=== PATIENT | male | born 1965 | race Caucasian/White ===

== ENCOUNTER 2018-02-22 10:37 | Emergency (ER) | payer MEDICAID, OTHER ==
[~2018-02-22] VITALS: Ht 172.7 cm; Wt 66.0 kg
[2018-02-22] MEDS ORDERED: SODIUM CHLORIDE 0.9% 1,000 ML IV ONE (10:59)
[2018-02-22] MEDS ORDERED: SODIUM CHLORIDE FLUSH 10ML SYR IVF ONE (11:00)
[2018-02-22] MEDS ORDERED: SODIUM CHLORIDE 0.9% 1,000ML IVBOLUS ONE (11:00)
[2018-02-22 11:34] LABS: INTERNATIONAL NORMALIZED RATIO 1.11 (0.93-1.1); PROTHROMBIN TIME 11.4 Seconds (9.6-11.5)
[2018-02-22 11:37] LABS: ALANINE AMINOTRANSFERASE 69 U/L (12-78); ALBUMIN 3.6 g/dL (3.4-5.0); ANION GAP 7 mmol/L (5-15); CALCIUM 8.5 mg/dL (8.5-10.1); CHLORIDE 101 mmol/L (98-107); CREATININE 1.24 mg/dL (0.7-1.3)
[2018-02-22 11:42] LABS: ALKALINE PHOSPHATASE 130 U/L (45-117); BILIRUBIN,TOTAL 2.5 mg/dL (0.2-1.0); TOTAL PROTEIN 7.2 g/dL (6.4-8.2); TROPONIN I 0.031 ng/mL (0.000-0.045)
[2018-02-22 11:57] LABS: MEAN CORPUSCULAR HEMOGLOBIN 35.1 pg (27.5-34.5); MEAN CORPUSCULAR HGB CONC 34.2 g/dL (33.2-36.2); MEAN CORPUSCULAR VOLUME 102.6 fL (81-97); MEAN PLATELET VOLUME 9.4 fL (7.4-10.4); PLATELET COUNT 67 x10^3/uL (130-400); RED BLOOD COUNT 4.24 x10^6/uL (4.38-5.82)
[2018-02-22 12:26] LABS: BASOPHILS # (AUTO) 0.01 x10^3/uL (0-0.1); BASOPHILS % (AUTO) 0 % (0-1); EOSINOPHILS # (AUTO) 0.03 x10^3/uL (0-0.4); EOSINOPHILS % (AUTO) 1 % (1-7); LYMPHOCYTES # (AUTO) 0.32 x10^3/uL (1-3.4); LYMPHOCYTES % (AUTO) 6 % (22-44); MD SCAN; MONOCYTES # (AUTO) 0.34 x10^3/uL (0.2-0.8); MONOCYTES % (AUTO) 7 % (2-9); NEUTROPHILS # (AUTO) 4.33 x10^3/uL (1.8-6.8); NEUTROPHILS % (AUTO) 86 % (42-75)
[2018-02-22 13:07] VITALS: BP 151/102
== END 2018-02-22 13:09 | disposition home or self-care (01) ==
LOC: ED 13:03
DX: R55 Syncope and collapse (principal); F10.10 Alcohol abuse, uncomplicated; F19.14 Other psychoactive substance abuse with psychoactive substance-induced mood disorder; R74.8 Abnormal levels of other serum enzymes
CPT/HCPCS: 36415; 71045; 80053; 83690; 83735; 84484; 85025; 85610; 85730; 93005; 96360; 99285; J7030

== ENCOUNTER 2018-05-09 05:13 | Emergency (ER) | payer OTHER ==
[~2018-05-09] VITALS: Ht 175.3 cm; Wt 67.7 kg
[2018-05-09] MEDS ORDERED: IBUPROFEN 200 MG TABLET PO ONE (06:00)
[2018-05-09] MEDS ORDERED: IBUPROFEN 200 MG TABLET ONE (06:01)
[2018-05-09] MEDS ORDERED: LIDOCAINE-MPF 2%, 2ML ONE (06:43)
[2018-05-09 06:58] VITALS: BP 169/105
== END 2018-05-09 08:10 | disposition home or self-care (01) ==
LOC: ED 08:05
DX: S63.125A Dislocation of interphalangeal joint of left thumb, initial encounter (principal); Z87.891 Personal history of nicotine dependence; X58.XXXA Exposure to other specified factors, initial encounter; Y93.89 Activity, other specified; Y99.8 Other external cause status; Y92.89 Other specified places as the place of occurrence of the external cause
CPT/HCPCS: 26770

== ENCOUNTER 2018-07-13 07:13 | Emergency (ER) | payer OTHER ==
[~2018-07-13] VITALS: Ht 175.3 cm; Wt 75.0 kg
[2018-07-13] MEDS ORDERED: DIPH,PERTUSS(ACELL),TET VAC/PF 0.5 ML IM-VACC ONE ×2 (07:30→08:39)
[2018-07-13 10:05] VITALS: BP 149/103
== END 2018-07-13 10:22 | disposition home or self-care (01) ==
LOC: ED 10:16
DX: S00.03XA Contusion of scalp, initial encounter (principal); S00.31XA Abrasion of nose, initial encounter; G31.2 Degeneration of nervous system due to alcohol; W01.0XXA Fall on same level from slipping, tripping and stumbling without subsequent striking against object, initial encounter; Y93.89 Activity, other specified; Y92.89 Other specified places as the place of occurrence of the external cause; Y99.8 Other external cause status
CPT/HCPCS: 70450; 72125; 90471; 90715; 99284

== ENCOUNTER 2018-07-13 17:47 | Emergency (ER) | payer OTHER ==
[~2018-07-13] VITALS: Ht 177.8 cm; Wt 75.0 kg
[2018-07-13 19:03] VITALS: BP 156/84
== END 2018-07-13 19:54 | disposition home or self-care (01) ==
LOC: ED 19:48
DX: S00.03XA Contusion of scalp, initial encounter (principal); F17.200 Nicotine dependence, unspecified, uncomplicated; W01.0XXA Fall on same level from slipping, tripping and stumbling without subsequent striking against object, initial encounter; Y93.89 Activity, other specified; Y92.89 Other specified places as the place of occurrence of the external cause; Y99.8 Other external cause status
CPT/HCPCS: 70450; 72125; 99284

== ENCOUNTER 2018-07-14 10:11 | Emergency (ER) | payer OTHER ==
[~2018-07-14] VITALS: Ht 177.8 cm; Wt 75.0 kg
[2018-07-14 15:39] VITALS: BP 159/92
== END 2018-07-14 15:42 | disposition home or self-care (01) ==
LOC: ED 11:00
DX: S00.531A Contusion of lip, initial encounter (principal); S40.012A Contusion of left shoulder, initial encounter; F10.220 Alcohol dependence with intoxication, uncomplicated; F17.200 Nicotine dependence, unspecified, uncomplicated; W45.8XXA Other foreign body or object entering through skin, initial encounter; Y93.89 Activity, other specified; Y92.219 Unspecified school as the place of occurrence of the external cause; Y99.8 Other external cause status
CPT/HCPCS: 93005; 99283

== ENCOUNTER 2018-10-20 10:46 | Inpatient (IN) | payer OTHER ==
[~2018-10-20] VITALS: Ht 175.3 cm; Wt 69.8 kg
--- NOTE | 2018-10-20 11:22 | NUR ---
C/O PRODUCTIVE COUGH W/ GREEN PHELGM. CONGESTED COUGH NOTED. REPORT SMOKING 1 PACK/DAY. STATES HE WAS PT AT [facility] 2 WKS AGO FOR SOB. STATES HE DOESN'T TAKE MEDS "BECAUSE MY INSURANCE DOESN'T COVER THEM".
[2018-10-20] MEDS ORDERED: SODIUM CHLORIDE FLUSH 10ML SYR IVF ONE (11:30)
[2018-10-20] MEDS ORDERED: ALBUTEROL/IPRATROPIUM 2.5MG/0.5MG, 3 ML NPPB ONE (11:30)
--- NOTE | 2018-10-20 11:37 | NUR ---
O2 SAT: LOW 90'S. OXYGEN APPLIED: 2LNC.
[2018-10-20] MEDS ORDERED: ALBUTEROL/IPRATROPIUM 2.5MG/0.5MG, 3 ML ONE (11:44)
--- NOTE | 2018-10-20 11:50 | NUR ---
RETURNED FROM XR. RESP TECH IN ROOM.
[2018-10-20 11:55] LABS: BASOPHILS # (AUTO) 0.01 x10^3/uL (0-0.1); BASOPHILS % (AUTO) 0 % (0-1); EOSINOPHILS # (AUTO) 0.07 x10^3/uL (0-0.4); EOSINOPHILS % (AUTO) 1 % (1-7); LYMPHOCYTES # (AUTO) 0.79 x10^3/uL (1-3.4); LYMPHOCYTES % (AUTO) 16 % (22-44); MD NO; MEAN CORPUSCULAR HEMOGLOBIN 34.8 pg (27.5-34.5); MEAN CORPUSCULAR HGB CONC 33.8 g/dL (33.2-36.2); MEAN CORPUSCULAR VOLUME 103.2 fL (81-97); MEAN PLATELET VOLUME 8.2 fL (7.4-10.4); MONOCYTES # (AUTO) 0.42 x10^3/uL (0.2-0.8); MONOCYTES % (AUTO) 8 % (2-9); NEUTROPHILS % (AUTO) 75 % (42-75); PLATELET COUNT 124 x10^3/uL (130-400); RED BLOOD COUNT 3.99 x10^6/uL (4.38-5.82); RED CELL DISTRIBUTION WIDTH 15.5 % (9.4-14.8)
[2018-10-20 12:08] LABS: ANION GAP 8 mmol/L (5-15); CALCIUM 8.8 mg/dL (8.5-10.1); CHLORIDE 109 mmol/L (98-107)
[2018-10-20] MEDS ORDERED: CEFTRIAXONE PMX 1GM/50ML 50 ML ONE (12:14)
[2018-10-20 12:29] LABS: BILIRUBIN, DIRECT 0.4 mg/dL (0.1-0.2)
[2018-10-20] MEDS ORDERED: CEFTRIAXONE PMX 1GM/50ML 50 ML IVPB ONE (12:30)
[2018-10-20 12:31] LABS: BILIRUBIN,INDIRECT 0.3 mg/dL (0.0-2.0); BILIRUBIN,TOTAL 0.7 mg/dL (0.2-1.0); TOTAL PROTEIN 6.9 g/dL (6.4-8.2)
[2018-10-20] MEDS ORDERED: AZITHROMYCIN 500 MG in SODIUM CHLORIDE 0.9% 250 ML IVPB ONE (13:00)
[2018-10-20] MEDS ORDERED: ACETAMINOPHEN 325 MG TABLET PO PRN (13:30)
[2018-10-20] MEDS ORDERED: POLYETHYLENE GLYCOL 17 GM PACKET PO PRN (13:30)
[2018-10-20] MEDS ORDERED: DOCUSATE 100 MG CAPSULE PO PRN (13:30)
[2018-10-20] MEDS ORDERED: ONDANSETRON 2MG/ML, 2ML IVPush PRN (13:30)
[2018-10-20] MEDS ORDERED: BISACODYL 10 MG SUPP PR PRN (13:30)
[2018-10-20] MEDS ORDERED: NS + 20MEQ KCL 1,000 ML IV SCH (14:00)
--- NOTE | 2018-10-20 14:08 | NUR ---
O2 SAT 88% ON 2LNC; WILL TITRATE: O2 INCREASED TO 4LNC
[2018-10-20] MEDS: CEFTRIAXONE PMX 1GM/50ML 50 ML IV SCH (14:13)
[2018-10-20] MEDS ORDERED: methylPREDNISolone SOD SUCC 125 MG/2 ML ONE (14:18)
[2018-10-20] MEDS: methylPREDNISolone SOD SUCC 125 MG/2 ML IVPush SCH ×2 (14:28→20:26)
--- NOTE | 2018-10-20 14:53 | NUR ---
PT REPORT TO SERA GALLAGHER FOR ROOM 484-1
[2018-10-20] MEDS ORDERED: ENALAPRILAT 1.25 MG/ML, 2ML ONE (15:03)
[2018-10-20] MEDS ORDERED: ENOXAPARIN 40 MG/0.4 ML ONE (15:03)
[2018-10-20] MEDS: ENALAPRILAT 1.25 MG/ML, 2ML IVPush PRN (15:07)
[2018-10-20] MEDS: ENOXAPARIN 40 MG/0.4 ML SQ SCH (15:09)
--- NOTE | 2018-10-20 15:09 | NUR ---
CONSULTED DR PEDROZA RE: VASOTEC VS LOPRESSOR ORDER. VO VASOTEC 2.5MG. VASOTEC & LOVENOX GIVEN. PT THEN TAKEN TO FLOOR PER ANDRESSA.
[2018-10-20 15:23] VITALS: BP 185/118
[2018-10-20] MEDS: ALBUTEROL/IPRATROPIUM 2.5MG/0.5MG, 3 ML NPPB SCH ×2 (15:40→19:45)
[2018-10-20] MEDS: DOXYCYCLINE 100 MG in DEXTROSE 5% 250 ML IV SCH (15:59)
[2018-10-20] MEDS: BACLOFEN 10 MG TABLET PO SCH ×2 (16:04→22:27)
[2018-10-20] MEDS: LABETALOL 5MG/ML, 20ML IVPush PRN ×2 (17:26→20:27)
[2018-10-20] MEDS: METOPROLOL TARTRATE 25 MG TABLET PO SCH (18:25)
[2018-10-20 19:54] VITALS: BP 172/99
[2018-10-20 20:24] VITALS: BP 171/105
[2018-10-20] MEDS: GUAIFENESIN ER 600 MG TABLET PO SCH (20:27)
[2018-10-20] MEDS: SODIUM CHLORIDE FLUSH 10ML SYR IVF SCH (20:28)
[2018-10-21] VITALS (7 sets, daily range): BP systolic 149–189; BP diastolic 80–123
[2018-10-21] MEDS: methylPREDNISolone SOD SUCC 125 MG/2 ML IVPush SCH ×4 (01:36→21:10)
[2018-10-21] MEDS: ENALAPRILAT 1.25 MG/ML, 2ML IVPush PRN ×3 (01:36→10:13)
[2018-10-21] MEDS: DOXYCYCLINE 100 MG in DEXTROSE 5% 250 ML IV SCH ×2 (03:22→15:41)
[2018-10-21] MEDS: ALBUTEROL/IPRATROPIUM 2.5MG/0.5MG, 3 ML NPPB SCH ×5 (03:57→20:30)
[2018-10-21 05:28] LABS: ANION GAP 10 mmol/L (5-15); CALCIUM 8.4 mg/dL (8.5-10.1); CHLORIDE 103 mmol/L (98-107)
[2018-10-21 05:29] LABS: CREATININE 1.49 mg/dL (0.7-1.3)
[2018-10-21 05:30] LABS: MEAN CORPUSCULAR HGB CONC 33.7 g/dL (33.2-36.2); MEAN CORPUSCULAR VOLUME 103.8 fL (81-97); MEAN PLATELET VOLUME 9.3 fL (7.4-10.4); PLATELET COUNT 107 x10^3/uL (130-400); RED BLOOD COUNT 3.64 x10^6/uL (4.38-5.82); RED CELL DISTRIBUTION WIDTH 15.6 % (9.4-14.8)
[2018-10-21] MEDS: METOPROLOL TARTRATE 25 MG TABLET PO SCH ×2 (05:47→17:28)
[2018-10-21] MEDS: BACLOFEN 10 MG TABLET PO SCH ×3 (05:47→22:37)
[2018-10-21 05:50] LABS: BASOPHILS % (AUTO) 0 % (0-1); EOSINOPHILS % (AUTO) 0 % (1-7); LYMPHOCYTES % (AUTO) 6 % (22-44); MD SCAN; MONOCYTES # (AUTO) 0.05 x10^3/uL (0.2-0.8); MONOCYTES % (AUTO) 2 % (2-9); NEUTROPHILS # (AUTO) 2.85 x10^3/uL (1.8-6.8); NEUTROPHILS % (AUTO) 92 % (42-75)
[2018-10-21] MEDS: LABETALOL 5MG/ML, 20ML IVPush PRN ×2 (05:53→15:41)
[2018-10-21] MEDS: SODIUM CHLORIDE 0.9% 1,000 ML IV SCH (07:00)
[2018-10-21] MEDS: SODIUM CHLORIDE FLUSH 10ML SYR IVF SCH ×2 (09:00→21:10)
[2018-10-21] MEDS: FOLIC ACID 1 MG TABLET PO SCH (09:06)
[2018-10-21] MEDS: GUAIFENESIN ER 600 MG TABLET PO SCH ×2 (09:06→21:10)
[2018-10-21] MEDS: THIAMINE 100MG TABLET PO SCH (09:06)
[2018-10-21] MEDS: MULTIVITAMIN 1 TABLET PO SCH (09:06)
[2018-10-21] MEDS: AMLODIPINE 5 MG TABLET PO SCH ×2 (11:24→21:10)
[2018-10-21] MEDS: LORazepam 2 MG/ML, 1ML IVPush PRN (11:24)
[2018-10-21 11:55] LABS: CLOSTRIDIUM DIFFICILE ANTIGEN NEGATIVE; CLOSTRIDIUM DIFFICILE TOXIN NEGATIVE (Negative)
[2018-10-21] MEDS: CEFTRIAXONE PMX 1GM/50ML 50 ML IV SCH (12:45)
[2018-10-21] MEDS: ENOXAPARIN 40 MG/0.4 ML SQ SCH (12:46)
[2018-10-21] MEDS: INSULIN LISPRO 100 UNITS/ML, PEN SQ-INSULIN SCH (23:36)
[2018-10-22] VITALS (8 sets, daily range): BP systolic 164–186; BP diastolic 93–111
[2018-10-22] MEDS: ALBUTEROL/IPRATROPIUM 2.5MG/0.5MG, 3 ML NPPB SCH ×5 (01:50→20:15)
[2018-10-22] MEDS: ENALAPRILAT 1.25 MG/ML, 2ML IVPush PRN (02:25)
[2018-10-22] MEDS: methylPREDNISolone SOD SUCC 125 MG/2 ML IVPush SCH ×2 (02:26→08:23)
[2018-10-22] MEDS: DOXYCYCLINE 100 MG in DEXTROSE 5% 250 ML IV SCH ×2 (02:55→16:01)
[2018-10-22] MEDS: SODIUM CHLORIDE 0.9% 1,000 ML IV SCH (04:20)
[2018-10-22] MEDS: LORazepam 2 MG/ML, 1ML IVPush PRN (04:28)
[2018-10-22] MEDS: BACLOFEN 10 MG TABLET PO SCH ×3 (05:27→21:21)
[2018-10-22] MEDS: METOPROLOL TARTRATE 25 MG TABLET PO SCH ×2 (05:27→17:20)
[2018-10-22 06:24] LABS: ANION GAP 7 mmol/L (5-15); CHLORIDE 108 mmol/L (98-107); CREATININE 1.29 mg/dL (0.7-1.3)
[2018-10-22 06:25] LABS: MEAN CORPUSCULAR HEMOGLOBIN 35.1 pg (27.5-34.5); MEAN CORPUSCULAR HGB CONC 33.5 g/dL (33.2-36.2); MEAN CORPUSCULAR VOLUME 104.6 fL (81-97); MEAN PLATELET VOLUME 9.5 fL (7.4-10.4); PLATELET COUNT 109 x10^3/uL (130-400); RED BLOOD COUNT 3.54 x10^6/uL (4.38-5.82); RED CELL DISTRIBUTION WIDTH 15.6 % (9.4-14.8)
[2018-10-22 06:44] LABS: BASOPHILS % (AUTO) 0 % (0-1); EOSINOPHILS % (AUTO) 0 % (1-7); LYMPHOCYTES # (AUTO) 0.18 x10^3/uL (1-3.4); LYMPHOCYTES % (AUTO) 3 % (22-44); MD SCAN; MONOCYTES # (AUTO) 0.14 x10^3/uL (0.2-0.8); MONOCYTES % (AUTO) 2 % (2-9); NEUTROPHILS # (AUTO) 5.64 x10^3/uL (1.8-6.8); NEUTROPHILS % (AUTO) 95 % (42-75)
[2018-10-22] MEDS: AMLODIPINE 5 MG TABLET PO SCH ×2 (08:23→21:21)
[2018-10-22] MEDS: FOLIC ACID 1 MG TABLET PO SCH (08:23)
[2018-10-22] MEDS: THIAMINE 100MG TABLET PO SCH (08:23)
[2018-10-22] MEDS: MULTIVITAMIN 1 TABLET PO SCH (08:23)
[2018-10-22] MEDS: GUAIFENESIN ER 600 MG TABLET PO SCH ×2 (08:23→21:21)
[2018-10-22] MEDS: INSULIN LISPRO 100 UNITS/ML, PEN SQ-INSULIN SCH ×4 (08:24→21:22)
[2018-10-22] MEDS: SODIUM CHLORIDE FLUSH 10ML SYR IVF SCH ×2 (08:24→21:22)
[2018-10-22] MEDS: LABETALOL 5MG/ML, 20ML IVPush PRN (08:26)
[2018-10-22] MEDS: LISINOPRIL 10 MG TABLET PO SCH ×2 (12:23→21:21)
[2018-10-22] MEDS: ENOXAPARIN 40 MG/0.4 ML SQ SCH (15:00)
[2018-10-22] MEDS: CEFTRIAXONE PMX 1GM/50ML 50 ML IV SCH (15:00)
[2018-10-22] MEDS ORDERED: INSULIN LISPRO 100 UNITS/ML, PEN SQ-INSULIN ONE (21:00)
[2018-10-22] MEDS ORDERED: CALCIUM CARBONATE 500 MG TAB.CHEW PO PRN (21:00)
[2018-10-23 00:42] VITALS: BP 162/108
[2018-10-23] MEDS: ENALAPRILAT 1.25 MG/ML, 2ML IVPush PRN (00:49)
[2018-10-23] MEDS: DOXYCYCLINE 100 MG in DEXTROSE 5% 250 ML IV SCH ×2 (03:27→16:13)
[2018-10-23 05:30] LABS: BASOPHILS # (AUTO) 0.01 x10^3/uL (0-0.1); BASOPHILS % (AUTO) 0 % (0-1); EOSINOPHILS % (AUTO) 0 % (1-7); LYMPHOCYTES # (AUTO) 0.73 x10^3/uL (1-3.4); LYMPHOCYTES % (AUTO) 9 % (22-44); MD NO; MEAN CORPUSCULAR HGB CONC 33.7 g/dL (33.2-36.2); MEAN CORPUSCULAR VOLUME 103.9 fL (81-97); MEAN PLATELET VOLUME 8.9 fL (7.4-10.4); MONOCYTES # (AUTO) 0.46 x10^3/uL (0.2-0.8); MONOCYTES % (AUTO) 6 % (2-9); NEUTROPHILS # (AUTO) 6.58 x10^3/uL (1.8-6.8); NEUTROPHILS % (AUTO) 85 % (42-75); PLATELET COUNT 116 x10^3/uL (130-400); RED BLOOD COUNT 3.72 x10^6/uL (4.38-5.82); RED CELL DISTRIBUTION WIDTH 15.5 % (9.4-14.8)
[2018-10-23 05:35] VITALS: BP 164/108
[2018-10-23] MEDS: BACLOFEN 10 MG TABLET PO SCH ×3 (05:36→21:49)
[2018-10-23] MEDS: METOPROLOL TARTRATE 25 MG TABLET PO SCH ×2 (05:36→18:03)
[2018-10-23 05:40] LABS: CHLORIDE 108 mmol/L (98-107)
[2018-10-23 05:44] LABS: ANION GAP 5 mmol/L (5-15); CALCIUM 8.5 mg/dL (8.5-10.1); CREATININE 1.12 mg/dL (0.7-1.3)
[2018-10-23] MEDS: INSULIN LISPRO 100 UNITS/ML, PEN SQ-INSULIN SCH ×4 (07:00→21:49)
[2018-10-23] MEDS: ALBUTEROL/IPRATROPIUM 2.5MG/0.5MG, 3 ML NPPB SCH ×4 (07:15→19:14)
[2018-10-23] MEDS: LISINOPRIL 20 MG TABLET PO SCH ×2 (08:00→20:34)
[2018-10-23] MEDS: MULTIVITAMIN 1 TABLET PO SCH (08:00)
[2018-10-23] MEDS: THIAMINE 100MG TABLET PO SCH (08:00)
[2018-10-23] MEDS: FOLIC ACID 1 MG TABLET PO SCH (08:00)
[2018-10-23] MEDS: AMLODIPINE 5 MG TABLET PO SCH ×2 (08:00→20:34)
[2018-10-23] MEDS: GUAIFENESIN ER 600 MG TABLET PO SCH ×2 (08:00→20:34)
[2018-10-23] MEDS: SODIUM CHLORIDE FLUSH 10ML SYR IVF SCH ×2 (08:01→20:35)
[2018-10-23 08:27] VITALS: BP 161/109
[2018-10-23] MEDS: CEFTRIAXONE PMX 1GM/50ML 50 ML IV SCH (13:30)
[2018-10-23] MEDS: ENOXAPARIN 40 MG/0.4 ML SQ SCH (13:30)
[2018-10-23 14:14] VITALS: BP 159/91
[2018-10-23] MEDS ORDERED: DOXY100T PO (14:53)
[2018-10-23] MEDS ORDERED: METO25TA35 PO (14:53)
[2018-10-23] MEDS ORDERED: GUAI600T31 PO (14:53)
[2018-10-23] MEDS ORDERED: CEFD300C37 PO (14:53)
[2018-10-23] MEDS ORDERED: MULT1TAB60 PO (14:53)
[2018-10-23] MEDS ORDERED: LISI-170 PO (14:53)
[2018-10-23] MEDS ORDERED: PRED20TA PO (14:53)
[2018-10-23] MEDS ORDERED: AMLO-150 PO (14:53)
[2018-10-23] MEDS ORDERED: FOLI-17 PO (14:53)
[2018-10-23] MEDS ORDERED: THIA100T67 PO (14:53)
[2018-10-23] MEDS ORDERED: FUROSEMIDE 20 MG/2 ML IV ONE (17:30)
[2018-10-23 19:36] VITALS: BP 154/86
[2018-10-24 01:42] VITALS: BP 132/81
[2018-10-24] MEDS: DOXYCYCLINE 100 MG in DEXTROSE 5% 250 ML IV SCH ×2 (03:48→15:00)
[2018-10-24] MEDS: BACLOFEN 10 MG TABLET PO SCH ×2 (05:57→14:30)
[2018-10-24] MEDS: METOPROLOL TARTRATE 25 MG TABLET PO SCH (05:57)
[2018-10-24] MEDS: ALBUTEROL/IPRATROPIUM 2.5MG/0.5MG, 3 ML NPPB SCH ×3 (06:47→14:01)
[2018-10-24 07:57] VITALS: BP 135/78
[2018-10-24] MEDS: INSULIN LISPRO 100 UNITS/ML, PEN SQ-INSULIN SCH ×2 (08:11→11:31)
[2018-10-24] MEDS: THIAMINE 100MG TABLET PO SCH (08:12)
[2018-10-24] MEDS: MULTIVITAMIN 1 TABLET PO SCH (08:12)
[2018-10-24] MEDS: GUAIFENESIN ER 600 MG TABLET PO SCH (08:12)
[2018-10-24] MEDS: FOLIC ACID 1 MG TABLET PO SCH (08:12)
[2018-10-24] MEDS: SODIUM CHLORIDE FLUSH 10ML SYR IVF SCH (08:12)
[2018-10-24] MEDS: AMLODIPINE 5 MG TABLET PO SCH (08:12)
[2018-10-24] MEDS: LISINOPRIL 20 MG TABLET PO SCH (08:12)
[2018-10-24] MEDS: ENOXAPARIN 40 MG/0.4 ML SQ SCH (13:30)
[2018-10-24] MEDS: CEFTRIAXONE PMX 1GM/50ML 50 ML IV SCH (13:30)
[2018-10-24 13:48] VITALS: BP 130/74
[2018-10-24] MEDS ORDERED: DOXY100T PO (14:17)
[2018-10-24] MEDS ORDERED: METO25TA35 PO (14:17)
[2018-10-24] MEDS ORDERED: GUAI600T31 PO (14:17)
[2018-10-24] MEDS ORDERED: LISI-170 PO (14:17)
[2018-10-24] MEDS ORDERED: THIA100T67 PO (14:17)
[2018-10-24] MEDS ORDERED: FOLI-17 PO (14:17)
[2018-10-24] MEDS ORDERED: MULT1TAB60 PO (14:17)
[2018-10-24] MEDS ORDERED: PRED20TA PO (14:17)
[2018-10-24] MEDS ORDERED: CEFD300C37 PO (14:17)
[2018-10-24] MEDS ORDERED: AMLO-150 PO (14:17)
== END 2018-10-24 15:45 | disposition home or self-care (01) | DRG 193 ==
LOC: ED 11:59 → EDIP 13:22 → 4EST 15:21 → DCLOUNGE 10-24 15:35
PROVIDERS: ADMIT Hospitalist; ATTEND Hospitalist
DX: J15.9 Unspecified bacterial pneumonia (principal); J96.01 Acute respiratory failure with hypoxia; N17.0 Acute kidney failure with tubular necrosis; E44.0 Moderate protein-calorie malnutrition; J44.0 Chronic obstructive pulmonary disease with (acute) lower respiratory infection; J44.1 Chronic obstructive pulmonary disease with (acute) exacerbation; D69.6 Thrombocytopenia, unspecified; E87.6 Hypokalemia; F17.210 Nicotine dependence, cigarettes, uncomplicated; F10.129 Alcohol abuse with intoxication, unspecified; I11.9 Hypertensive heart disease without heart failure; I27.20 Pulmonary hypertension, unspecified; I35.8 Other nonrheumatic aortic valve disorders; Z91.14 Patient's other noncompliance with medication regimen; Z68.22 Body mass index [BMI] 22.0-22.9, adult
CPT/HCPCS: 36415; 84145; 99285; J7620; 71046; 80048; 80076; 82040; 82947; 82962; 83605; 85025; 87040; 87070; 87205; 87324; 93005; 93306; 93975; 94640; 96365; 96367; 96372; G0378; J0456; J0696; J1650; J3480; J7060; J1815; J1940; J2060; J2930; J7030; J7050; J7512

== ENCOUNTER 2018-11-11 13:11 | Inpatient (IN) | payer OTHER ==
[~2018-11-11] VITALS: Ht 175.3 cm; Wt 68.5 kg
[~2018-11-11 13:11] MED LIST: AMLO-150 PO; CEFD300C37 PO; DOXY100T PO; FOLI-17 PO; GUAI600T31 PO; LISI-170 PO; METO25TA35 PO; MULT1TAB60 PO; PRED20TA PO; THIA100T67 PO
--- NOTE | 2018-11-11 13:50 | NUR ---
pt to ed for clavicle pain after mglf and associated palpitations starting 1/2 hour after fall. pt states drank 1/2 pint to 1 pint of vodka this am. connected to all monitors. htn, tachy, all other vss. edmd assessment complete. orders received.
[2018-11-11] MEDS ORDERED: ASPIRIN 81 MG TABLET CHEW ONE (13:53)
[2018-11-11] MEDS ORDERED: METOPROLOL TARTRATE 50 MG TABLET ONE (13:53)
[2018-11-11] MEDS ORDERED: LORazepam 1MG TABLET ONE (13:54)
[2018-11-11] MEDS ORDERED: LORazepam 1MG TABLET PO ONE (14:00)
[2018-11-11] MEDS ORDERED: ASPIRIN 81 MG TABLET CHEW PO ONE (14:00)
[2018-11-11] MEDS ORDERED: METOPROLOL TARTRATE 50 MG TABLET PO ONE (14:00)
[2018-11-11 14:22] LABS: ALBUMIN 3.1 g/dL (3.4-5.0); ANION GAP 6 mmol/L (5-15); CALCIUM 8.2 mg/dL (8.5-10.1); CHLORIDE 109 mmol/L (98-107)
[2018-11-11 14:28] LABS: ALANINE AMINOTRANSFERASE 25 U/L (12-78); ALKALINE PHOSPHATASE 145 U/L (45-117); BILIRUBIN,TOTAL 0.6 mg/dL (0.2-1.0); CREATININE 1.13 mg/dL (0.7-1.3); TOTAL PROTEIN 6.6 g/dL (6.4-8.2); TROPONIN I 0.081 ng/mL (0.000-0.045)
[2018-11-11 14:34] LABS: BASOPHILS # (AUTO) 0.04 x10^3/uL (0-0.1); BASOPHILS % (AUTO) 1 % (0-1); EOSINOPHILS # (AUTO) 0.13 x10^3/uL (0-0.4); EOSINOPHILS % (AUTO) 3 % (1-7); LYMPHOCYTES # (AUTO) 0.99 x10^3/uL (1-3.4); LYMPHOCYTES % (AUTO) 22 % (22-44); MD NO; MEAN CORPUSCULAR HGB CONC 34.1 g/dL (33.2-36.2); MEAN CORPUSCULAR VOLUME 102.9 fL (81-97); MEAN PLATELET VOLUME 8.4 fL (7.4-10.4); MONOCYTES # (AUTO) 0.33 x10^3/uL (0.2-0.8); MONOCYTES % (AUTO) 7 % (2-9); NEUTROPHILS # (AUTO) 2.99 x10^3/uL (1.8-6.8); NEUTROPHILS % (AUTO) 67 % (42-75); PLATELET COUNT 160 x10^3/uL (130-400); RED BLOOD COUNT 3.95 x10^6/uL (4.38-5.82); RED CELL DISTRIBUTION WIDTH 14.7 % (9.4-14.8)
--- NOTE | 2018-11-11 14:59 | NUR ---
HOSPITALIST TO BEDSIDE FOR ASSESSMENT. PT RESTING IN ROOM. VSS. NO NEEDS AT THIS TIME.
[2018-11-11] MEDS ORDERED: SODIUM CHLORIDE FLUSH 10ML SYR IVF ONE (15:00)
[2018-11-11] MEDS ORDERED: CHLORDIAZEPOXIDE 25 MG CAPSULE PO PRN (15:30)
[2018-11-11] MEDS ORDERED: LABETALOL 5MG/ML, 20ML IVPush PRN (15:30)
[2018-11-11] MEDS ORDERED: ONDANSETRON 2MG/ML, 2ML IVPush PRN (15:30)
[2018-11-11] MEDS ORDERED: CYCLOBENZAPRINE 10 MG TABLET PO PRN (15:30)
[2018-11-11] MEDS ORDERED: NITROGLYCERIN 0.4 MG BOTTLE (25 TABS) SL PRN (15:30)
[2018-11-11] MEDS ORDERED: LORazepam 1MG TABLET PO PRN ×3 (15:30)
[2018-11-11] MEDS ORDERED: LORazepam 2 MG/ML, 1ML IV PRN ×4 (15:30)
[2018-11-11] MEDS ORDERED: ACETAMINOPHEN 325 MG TABLET PO PRN (15:30)
[2018-11-11] MEDS ORDERED: LORazepam 0.5MG TABLET PO PRN (15:30)
[2018-11-11] MEDS ORDERED: morphine SULFATE 10 MG/ML, 1ML IVPush PRN (15:30)
[2018-11-11] MEDS ORDERED: hydrALAzine 20 MG/ML, 1ML IVPush PRN (15:30)
--- NOTE | 2018-11-11 15:55 | NUR ---
PT RESTING IN ROOM WITH EYES CLOSED. VSS. NO NEEDS AT THIS TIME.
[2018-11-11 16:01] LABS: HEMOGLOBIN A1C 6.3 % (4.2-6.3)
[2018-11-11] MEDS ORDERED: POTASSIUM CHLORIDE 20 MEQ TAB.ER.PRT PO SCH (17:00)
[2018-11-11 17:57] VITALS: BP 175/105
[2018-11-11] MEDS: HEPARIN 5,000 UNITS/ML, 1ML SQ SCH (18:09)
[2018-11-11] MEDS: METOPROLOL TARTRATE 25 MG TABLET PO SCH (18:09)
[2018-11-11] MEDS: NICOTINE 21 MG/24 HR PATCH.TD24 TD SCH (18:10)
[2018-11-11] MEDS ORDERED: MAGNESIUM SULFATE 4 GM in SODIUM CHLORIDE 0.9% 100 ML IV ONE (20:00)
[2018-11-11] MEDS ORDERED: ALBUTEROL SULFATE 2.5 MG/3 ML ONE (20:27)
[2018-11-11] MEDS ORDERED: hydrALAzine 20 MG/ML, 1ML IV ONE (20:38)
[2018-11-11] MEDS ORDERED: PHARMACY INSTRUCTION MC PRN ×4 (21:00)
[2018-11-11] MEDS ORDERED: THIAMINE 100MG TABLET PO SCH (21:00)
[2018-11-11] MEDS ORDERED: ATORVASTATIN 80 MG TABLET PO SCH (21:00)
[2018-11-11] MEDS: AMLODIPINE 5 MG TABLET PO SCH (21:00)
[2018-11-11] MEDS ORDERED: LISINOPRIL 20 MG TABLET PO SCH (21:00)
[2018-11-11 21:14] LABS: TROPONIN I 0.094 ng/mL (0.000-0.045)
[2018-11-11] MEDS ORDERED: PHENOBARBITAL SODIUM 690 MG in SODIUM CHLORIDE 0.9% 50 ML IVPB ONE (21:30)
[2018-11-11] MEDS ORDERED: DEXMEDETOMIDINE 200 MCG in SODIUM CHLORIDE 0.9% 48 ML IV PRN (21:30)
[2018-11-11] MEDS ORDERED: PHENOBARBITAL ETOH DETOX PER PHARMACY MC PRN (21:30)
[2018-11-12] MEDS: PHENOBARBITAL 20 MG/5 ML ORAL SOL PO SCH ×2 (02:54→15:40)
[2018-11-12] MEDS: HEPARIN 5,000 UNITS/ML, 1ML SQ SCH ×3 (02:54→17:24)
[2018-11-12] MEDS ORDERED: LABETALOL 5 MG/ML SYRINGE IVPush PRN (03:00)
[2018-11-12 03:02] LABS: BASOPHILS # (AUTO) 0.01 x10^3/uL (0-0.1); BASOPHILS % (AUTO) 0 % (0-1); EOSINOPHILS # (AUTO) 0.09 x10^3/uL (0-0.4); EOSINOPHILS % (AUTO) 2 % (1-7); LYMPHOCYTES # (AUTO) 0.48 x10^3/uL (1-3.4); LYMPHOCYTES % (AUTO) 9 % (22-44); MD NO; MEAN CORPUSCULAR HEMOGLOBIN 34.5 pg (27.5-34.5); MEAN CORPUSCULAR HGB CONC 33.6 g/dL (33.2-36.2); MEAN CORPUSCULAR VOLUME 102.9 fL (81-97); MEAN PLATELET VOLUME 8.4 fL (7.4-10.4); MONOCYTES # (AUTO) 0.31 x10^3/uL (0.2-0.8); MONOCYTES % (AUTO) 6 % (2-9); NEUTROPHILS % (AUTO) 84 % (42-75); PLATELET COUNT 142 x10^3/uL (130-400); RED BLOOD COUNT 3.88 x10^6/uL (4.38-5.82)
[2018-11-12 03:17] LABS: TROPONIN I 0.093 ng/mL (0.000-0.045)
[2018-11-12 03:25] LABS: ALANINE AMINOTRANSFERASE 23 U/L (12-78); ANION GAP 6 mmol/L (5-15); CALCIUM 8.5 mg/dL (8.5-10.1); CHLORIDE 114 mmol/L (98-107); CREATININE 1.08 mg/dL (0.7-1.3)
[2018-11-12 03:27] LABS: ALKALINE PHOSPHATASE 127 U/L (45-117); BILIRUBIN,TOTAL 0.6 mg/dL (0.2-1.0); TOTAL PROTEIN 6.2 g/dL (6.4-8.2)
[2018-11-12 04:09] VITALS: BP 146/100
[2018-11-12] MEDS ORDERED: ALBUTEROL/IPRATROPIUM 2.5MG/0.5MG, 3 ML NPPB SCH (06:00)
[2018-11-12] MEDS: METOPROLOL TARTRATE 25 MG TABLET PO SCH ×2 (06:02→17:24)
[2018-11-12] MEDS: LISINOPRIL 20 MG TABLET PO SCH ×2 (08:31→21:24)
[2018-11-12] MEDS: MULTIVITAMIN 1 TABLET PO SCH (08:32)
[2018-11-12] MEDS: AMLODIPINE 5 MG TABLET PO SCH ×2 (08:32→21:24)
[2018-11-12] MEDS: FOLIC ACID 1 MG TABLET PO SCH (08:32)
[2018-11-12] MEDS ORDERED: ASPIRIN 81 MG TABLET CHEW PO SCH (09:00)
[2018-11-12] MEDS: POTASSIUM CHLORIDE 20 MEQ, MAGNESIUM SULFATE 1 GM, MVI ADULT 10 ML, THIAMINE 200 MG, FO... IV SCH (09:13)
[2018-11-12 11:09] VITALS: BP 144/83
[2018-11-12 13:28] VITALS: BP 144/84
[2018-11-12] MEDS: NICOTINE 21 MG/24 HR PATCH.TD24 TD SCH (15:40)
[2018-11-12 18:56] VITALS: BP 144/86
[2018-11-12 21:20] VITALS: BP 152/98
[2018-11-13] MEDS: PHENOBARBITAL 20 MG/5 ML ORAL SOL PO SCH ×2 (02:24→15:48)
[2018-11-13] MEDS: HEPARIN 5,000 UNITS/ML, 1ML SQ SCH ×4 (02:25→20:55)
[2018-11-13 02:32] VITALS: BP 142/91
[2018-11-13 05:38] LABS: BASOPHILS # (AUTO) 0.03 x10^3/uL (0-0.1); BASOPHILS % (AUTO) 1 % (0-1); CHLORIDE 105 mmol/L (98-107); EOSINOPHILS # (AUTO) 0.24 x10^3/uL (0-0.4); EOSINOPHILS % (AUTO) 7 % (1-7); LYMPHOCYTES # (AUTO) 0.52 x10^3/uL (1-3.4); LYMPHOCYTES % (AUTO) 15 % (22-44); MD NO; MEAN CORPUSCULAR HEMOGLOBIN 34.1 pg (27.5-34.5); MEAN CORPUSCULAR HGB CONC 33.4 g/dL (33.2-36.2); MONOCYTES # (AUTO) 0.33 x10^3/uL (0.2-0.8); MONOCYTES % (AUTO) 9 % (2-9); NEUTROPHILS % (AUTO) 68 % (42-75); PLATELET COUNT 113 x10^3/uL (130-400); RED BLOOD COUNT 3.73 x10^6/uL (4.38-5.82)
[2018-11-13 05:46] LABS: ALANINE AMINOTRANSFERASE 22 U/L (12-78); ALBUMIN 2.4 g/dL (3.4-5.0); ALKALINE PHOSPHATASE 118 U/L (45-117); ANION GAP 6 mmol/L (5-15); BILIRUBIN,TOTAL 0.8 mg/dL (0.2-1.0); CALCIUM 7.7 mg/dL (8.5-10.1); CREATININE 1.14 mg/dL (0.7-1.3); TOTAL PROTEIN 5.6 g/dL (6.4-8.2)
[2018-11-13] MEDS: METOPROLOL TARTRATE 25 MG TABLET PO SCH ×2 (06:22→18:55)
[2018-11-13 07:33] VITALS: BP 135/94
[2018-11-13] MEDS: LISINOPRIL 20 MG TABLET PO SCH ×2 (08:30→20:57)
[2018-11-13] MEDS: MULTIVITAMIN 1 TABLET PO SCH (08:30)
[2018-11-13] MEDS: FOLIC ACID 1 MG TABLET PO SCH (08:30)
[2018-11-13] MEDS: AMLODIPINE 5 MG TABLET PO SCH ×2 (08:30→20:57)
[2018-11-13] MEDS ORDERED: ALBUTEROL/IPRATROPIUM 2.5MG/0.5MG, 3 ML NPPB SCH (10:00)
[2018-11-13] MEDS: POTASSIUM CHLORIDE 20 MEQ, MAGNESIUM SULFATE 1 GM, MVI ADULT 10 ML, THIAMINE 200 MG, FO... IV SCH (11:46)
[2018-11-13 12:13] VITALS: BP 141/93
[2018-11-13] MEDS: NICOTINE 21 MG/24 HR PATCH.TD24 TD SCH (15:49)
[2018-11-13] MEDS ORDERED: MAGNESIUM SULFATE PMX 2GM/50ML 50 ML IV ONE (18:30)
[2018-11-13 18:43] VITALS: BP 160/96
[2018-11-13] MEDS: MAGNESIUM OXIDE 400 MG TABLET PO SCH (20:57)
[2018-11-14 00:01] VITALS: BP 148/92
[2018-11-14] MEDS: PHENOBARBITAL 20 MG/5 ML ORAL SOL PO SCH ×2 (02:13→14:10)
[2018-11-14 04:15] VITALS: BP 136/90
[2018-11-14 05:06] LABS: BASOPHILS # (AUTO) 0.04 x10^3/uL (0-0.1); BASOPHILS % (AUTO) 1 % (0-1); EOSINOPHILS # (AUTO) 0.31 x10^3/uL (0-0.4); EOSINOPHILS % (AUTO) 8 % (1-7); LYMPHOCYTES # (AUTO) 0.71 x10^3/uL (1-3.4); LYMPHOCYTES % (AUTO) 19 % (22-44); MD NO; MEAN CORPUSCULAR HEMOGLOBIN 34.7 pg (27.5-34.5); MEAN CORPUSCULAR VOLUME 102.1 fL (81-97); MEAN PLATELET VOLUME 9.1 fL (7.4-10.4); MONOCYTES # (AUTO) 0.37 x10^3/uL (0.2-0.8); MONOCYTES % (AUTO) 10 % (2-9); NEUTROPHILS # (AUTO) 2.36 x10^3/uL (1.8-6.8); NEUTROPHILS % (AUTO) 62 % (42-75); PLATELET COUNT 123 x10^3/uL (130-400); RED BLOOD COUNT 3.81 x10^6/uL (4.38-5.82); RED CELL DISTRIBUTION WIDTH 14.6 % (9.4-14.8)
[2018-11-14 05:13] LABS: ALBUMIN 2.6 g/dL (3.4-5.0); ANION GAP 7 mmol/L (5-15); CALCIUM 8.1 mg/dL (8.5-10.1); CHLORIDE 102 mmol/L (98-107)
[2018-11-14 05:17] LABS: ALANINE AMINOTRANSFERASE 29 U/L (12-78); ALKALINE PHOSPHATASE 120 U/L (45-117); BILIRUBIN,TOTAL 1.3 mg/dL (0.2-1.0); CREATININE 1.02 mg/dL (0.7-1.3); TOTAL PROTEIN 5.7 g/dL (6.4-8.2)
[2018-11-14] MEDS: HEPARIN 5,000 UNITS/ML, 1ML SQ SCH ×2 (06:30→14:11)
[2018-11-14] MEDS: METOPROLOL TARTRATE 25 MG TABLET PO SCH (06:30)
[2018-11-14 08:00] VITALS: BP 131/82
[2018-11-14] MEDS: MULTIVITAMIN 1 TABLET PO SCH (08:36)
[2018-11-14] MEDS: AMLODIPINE 5 MG TABLET PO SCH (08:36)
[2018-11-14] MEDS: LISINOPRIL 20 MG TABLET PO SCH (08:37)
[2018-11-14] MEDS: MAGNESIUM OXIDE 400 MG TABLET PO SCH (08:37)
[2018-11-14] MEDS: FOLIC ACID 1 MG TABLET PO SCH (08:37)
[2018-11-14] MEDS: POTASSIUM CHLORIDE 20 MEQ, MAGNESIUM SULFATE 1 GM, MVI ADULT 10 ML, THIAMINE 200 MG, FO... IV SCH (10:18)
[2018-11-14 14:00] VITALS: BP 138/93
[2018-11-14] MEDS: NICOTINE 21 MG/24 HR PATCH.TD24 TD SCH (14:11)
[2018-11-14] MEDS ORDERED: MAGN400T50 PO (17:44)
[2018-11-16] MEDS ORDERED: PHENOBARBITAL 20 MG/5 ML ORAL SOL PO SCH (02:30)
[2018-11-17] MEDS ORDERED: PHENOBARBITAL 20 MG/5 ML ORAL SOL PO SCH (02:30)
== END 2018-11-14 17:58 | disposition home or self-care (01) | DRG 304 ==
LOC: ED 14:07 → EDIP 14:43 → 5SO 16:58 → CCU 21:02 → 3NW 11-12 11:08
PROVIDERS: ADMIT Hospitalist; ATTEND Hospitalist
DX: I16.0 Hypertensive urgency (principal); J96.01 Acute respiratory failure with hypoxia; E44.0 Moderate protein-calorie malnutrition; F10.231 Alcohol dependence with withdrawal delirium; I50.42 Chronic combined systolic (congestive) and diastolic (congestive) heart failure; D53.9 Nutritional anemia, unspecified; D75.89 Other specified diseases of blood and blood-forming organs; Z68.22 Body mass index [BMI] 22.0-22.9, adult; E87.6 Hypokalemia; F17.210 Nicotine dependence, cigarettes, uncomplicated; I11.0 Hypertensive heart disease with heart failure; I27.20 Pulmonary hypertension, unspecified; J44.9 Chronic obstructive pulmonary disease, unspecified; K70.9 Alcoholic liver disease, unspecified; Z91.14 Patient's other noncompliance with medication regimen; W18.39XA Other fall on same level, initial encounter; Y93.89 Activity, other specified; Y92.89 Other specified places as the place of occurrence of the external cause; Y99.8 Other external cause status; R73.9 Hyperglycemia, unspecified; Z79.899 Other long term (current) drug therapy; Y90.9 Presence of alcohol in blood, level not specified
CPT/HCPCS: 36415; 36600; 71045; 80053; 82803; 82962; 83036; 83735; 84100; 84439; 84443; 84484; 85025; 87081; 93005; 93321; 93325; 94640; 99285; G0378; J1644; J2405; J2560; J3411; J3475; J3480; Q9957; C8924; J0360; J2060

== ENCOUNTER 2018-12-20 06:25 | Emergency (ER) | payer OTHER ==
[~2018-12-20] VITALS: Ht 175.3 cm; Wt 67.3 kg
[~2018-12-20 06:25] MED LIST changes: +MAGN400T50 PO
[2018-12-20 07:10] LABS: ALBUMIN 3.6 g/dL (3.4-5.0); ANION GAP 8 mmol/L (5-15); CALCIUM 8.8 mg/dL (8.5-10.1); CHLORIDE 106 mmol/L (98-107); CREATININE 1.28 mg/dL (0.7-1.3)
[2018-12-20 07:12] LABS: BASOPHILS # (AUTO) 0.01 x10^3/uL (0-0.1); BASOPHILS % (AUTO) 0 % (0-1); EOSINOPHILS # (AUTO) 0.07 x10^3/uL (0-0.4); EOSINOPHILS % (AUTO) 2 % (1-7); LYMPHOCYTES # (AUTO) 0.73 x10^3/uL (1-3.4); LYMPHOCYTES % (AUTO) 15 % (22-44); MD NO; MEAN CORPUSCULAR HGB CONC 33.5 g/dL (33.2-36.2); MEAN CORPUSCULAR VOLUME 101.5 fL (81-97); MEAN PLATELET VOLUME 8.9 fL (7.4-10.4); MONOCYTES # (AUTO) 0.52 x10^3/uL (0.2-0.8); MONOCYTES % (AUTO) 11 % (2-9); NEUTROPHILS # (AUTO) 3.57 x10^3/uL (1.8-6.8); NEUTROPHILS % (AUTO) 73 % (42-75); PLATELET COUNT 102 x10^3/uL (130-400); RED BLOOD COUNT 3.97 x10^6/uL (4.38-5.82); RED CELL DISTRIBUTION WIDTH 15.8 % (9.4-14.8)
[2018-12-20] MEDS ORDERED: KETOROLAC 30 MG/1 ML IM ONE (08:00)
[2018-12-20] MEDS ORDERED: KETOROLAC 30 MG/1 ML ONE (08:09)
--- NOTE | 2018-12-20 08:26 | NUR ---
PT BACK FROM XRAY AND MEDICATED WITH TORADOL. PT RESTING WITH NO COMPLAINTS.
--- NOTE | 2018-12-20 08:40 | NUR ---
DR. PEDROZA NOTIFIED ABOUT BLOOD PRESSURE OF 196/120. IV TO BE ORDERED AND LABETALOL TO BE ORDERED.
--- NOTE | 2018-12-20 08:59 | NUR ---
LABETALOL REQUEST SLIP SENT TO PHARMACY.
[2018-12-20] MEDS ORDERED: LABETALOL 5MG/ML, 20ML IVPush ONE (09:00)
[2018-12-20] MEDS ORDERED: SODIUM CHLORIDE FLUSH 10ML SYR IVF ONE (09:00)
--- NOTE | 2018-12-20 09:27 | NUR ---
LABETALOL IVP GIVEN. WILL CONTINUE TO MONITOR. PATIENT HAS NO COMPLAINTS AT THIS TIME. CALL BUTTON ON BEDSIDE TABLE.
[2018-12-20 09:56] VITALS: BP 149/91
--- NOTE | 2018-12-20 10:30 | NUR ---
Patient/Caregiver given discharge instructions and they have confirmed that they understand the instructions. Patient ambulatory with steady gait.
== END 2018-12-20 10:31 | disposition home or self-care (01) ==
LOC: ED 10:14
DX: G89.29 Other chronic pain (principal); M79.671 Pain in right foot; M79.672 Pain in left foot
CPT/HCPCS: 36415; 73630; 80048; 82040; 84550; 85025; 93005; 96372; 96374; 99284; J1885

== ENCOUNTER 2020-07-09 14:07 | Inpatient (IN) | payer MEDICAID ==
[~2020-07-09] VITALS: Ht 175.3 cm; Wt 62.8 kg
[~2020-07-09 14:07] MED LIST changes: +BISO5TAB8 PO; +FURO20TA3 PO; +GLIP5TAB3 PO; +IPRA4AER INH; +MULT-449 PO; -MULT1TAB60 PO; +SPIR25TA5 PO; +TIOT18CA INH; +TRAM50TA2 PO; +UMEC62.5 INH
--- NOTE | 2020-07-09 14:18 | NUR ---
BIB BY [facility] FOR "I THINK MY COPD/FLUID BUILD UP IS WORSE AGAIN. I HAVN'T BEEN BREATHING WELL FOR TWO DAYS.I ALSO HAVE A RAGING HEADACHE" ROOM AIR SAT OF 93% BUT BREATHING 40/MINUTES ECG OBTAINED RASH NOTED TO UPPER ARMS/TORSO-"YEAH I GOT BED BUGS." WITH FURTHER ASSESSMENT INSECT FOUND-PLACED IN STERILE CONTAINER DROPLET PLUS PRECAUTIONS PLACED
[2020-07-09] MEDS ORDERED: ASPIRIN 81 MG TABLET CHEW PO ONE (14:30)
[2020-07-09] MEDS ORDERED: BUME1TAB21 PO (14:32)
[2020-07-09] MEDS ORDERED: MULT-658 PO (14:32)
[2020-07-09] MEDS ORDERED: CARV6.2512 PO (14:32)
[2020-07-09] MEDS ORDERED: ASPIRIN 81 MG TABLET CHEW ONE (14:45)
--- NOTE | 2020-07-09 15:02 | NUR ---
PT RESTING COMFORTABLY IN BED. APPEARS IN NO ACUTE DISTRESS. VSS. DRINKING JUICE
[2020-07-09 15:16] LABS: BASOPHILS % (AUTO) 1 % (0-1); EOSINOPHILS % (AUTO) 2 % (1-7); LYMPHOCYTES % (AUTO) 13 % (22-44); MEAN CORPUSCULAR HEMOGLOBIN 33.4 pg (27.5-34.5); MEAN CORPUSCULAR HGB CONC 33.6 g/dL (33.2-36.2); MEAN PLATELET VOLUME 10.4 fL (7.4-10.4); MONOCYTES % (AUTO) 8 % (2-9); NEUTROPHILS % (AUTO) 76 % (42-75); PLATELET COUNT 106 x10^3/uL (130-400); RED BLOOD COUNT 4.19 x10^6/uL (4.38-5.82); RED CELL DISTRIBUTION WIDTH 15.4 % (9.4-14.8)
[2020-07-09 15:18] LABS: ALANINE AMINOTRANSFERASE 18 U/L (12-78); ALBUMIN 3.2 g/dL (3.4-5.0); ANION GAP 7 mmol/L (5-15); CALCIUM 9.2 mg/dL (8.5-10.1); CHLORIDE 109 mmol/L (98-107); CREATININE 1.99 mg/dL (0.7-1.3)
[2020-07-09 15:23] LABS: MD NO
[2020-07-09] MEDS ORDERED: FUROSEMIDE 40 MG/4 ML ONE (15:28)
[2020-07-09] MEDS ORDERED: FUROSEMIDE 40 MG/4 ML IV ONE (15:30)
[2020-07-09 15:33] LABS: ALKALINE PHOSPHATASE 115 U/L (45-117); BILIRUBIN,TOTAL 1.3 mg/dL (0.2-1.0); TOTAL PROTEIN 6.9 g/dL (6.4-8.2)
--- NOTE | 2020-07-09 15:36 | NUR ---
RESTING IN BED WATCHING TV. VSS PT IS HYPERTENSIVE AT 153/109
[2020-07-09 15:37] LABS: TROPONIN I 0.127 ng/mL (0.000-0.045)
[2020-07-09] MEDS ORDERED: LORazepam 1MG TABLET ONE (16:22)
[2020-07-09] MEDS ORDERED: LORazepam 1MG TABLET PO ONE (16:30)
--- NOTE | 2020-07-09 16:53 | NUR ---
no bugs have been seen by this nurse.
--- NOTE | 2020-07-09 17:59 | NUR ---
PT SLEEPING IN BED. APPEARS IN NO ACUTE DISTRESS. VSS
[2020-07-09] MEDS ORDERED: ONDANSETRON 2MG/ML, 2ML IVPush PRN (19:00)
[2020-07-09] MEDS ORDERED: ACETAMINOPHEN 325 MG TABLET PO PRN (19:00)
[2020-07-09] MEDS ORDERED: hydrALAzine 20 MG/ML, 1ML IVPush PRN (19:00)
[2020-07-09] MEDS ORDERED: DOCUSATE 100 MG CAPSULE PO PRN (19:00)
[2020-07-09] MEDS ORDERED: HYDROcodone/APAP 5/325 TABLET PO PRN (19:00)
--- NOTE | 2020-07-09 19:18 | NUR ---
BREAK RN: LAB IN ROOM. VS STABLE. SUPERVISOR CLOTH WINDING ON. NSR NOTED. CALL LIGHT IN PLACE. WILL CONTINUE TO MONITOR WHILE PRIMARY RN IS ON BREAK.
[2020-07-09 20:13] LABS: TROPONIN I 0.126 ng/mL (0.000-0.045)
[2020-07-09 20:42] VITALS: BP 141/93
[2020-07-09] MEDS: FAMOTIDINE 20 MG/2 ML IVPush SCH (22:04)
[2020-07-09] MEDS: CARVEDILOL 6.25 MG TABLET PO SCH (22:06)
[2020-07-09 22:14] VITALS: BP 141/93
[2020-07-10 01:01] LABS: TROPONIN I 0.089 ng/mL (0.000-0.045)
[2020-07-10 01:35] VITALS: BP 133/88
[2020-07-10] MEDS ORDERED: ALBUTEROL-IPRATROPIUM MDI INH INH SCH (03:30)
[2020-07-10 06:03] LABS: BASOPHILS % (AUTO) 1 % (0-1); EOSINOPHILS % (AUTO) 5 % (1-7); LYMPHOCYTES % (AUTO) 23 % (22-44); MEAN CORPUSCULAR HEMOGLOBIN 33.1 pg (27.5-34.5); MEAN CORPUSCULAR HGB CONC 32.9 g/dL (33.2-36.2); MEAN PLATELET VOLUME 9.8 fL (7.4-10.4); MONOCYTES % (AUTO) 10 % (2-9); NEUTROPHILS % (AUTO) 61 % (42-75); PLATELET COUNT 98 x10^3/uL (130-400); RED BLOOD COUNT 4.36 x10^6/uL (4.38-5.82); RED CELL DISTRIBUTION WIDTH 15.1 % (9.4-14.8)
[2020-07-10 06:13] LABS: ALANINE AMINOTRANSFERASE 16 U/L (12-78); ALBUMIN 2.8 g/dL (3.4-5.0); ANION GAP 6 mmol/L (5-15); CALCIUM 8.8 mg/dL (8.5-10.1); CHLORIDE 109 mmol/L (98-107); CREATININE 2.07 mg/dL (0.7-1.3)
[2020-07-10 06:15] LABS: ALKALINE PHOSPHATASE 101 U/L (45-117); TOTAL PROTEIN 5.8 g/dL (6.4-8.2)
[2020-07-10 06:16] LABS: MD NO
[2020-07-10 08:49] VITALS: BP 144/96
[2020-07-10] MEDS ORDERED: BUMETANIDE 1 MG TABLET PO SCH (09:00)
[2020-07-10] MEDS: THIAMINE 100MG TABLET PO SCH (09:39)
[2020-07-10] MEDS: SPIRONOLACTONE 25 MG TABLET PO SCH (09:39)
[2020-07-10] MEDS: CARVEDILOL 6.25 MG TABLET PO SCH ×2 (09:40→22:01)
[2020-07-10] MEDS: LISINOPRIL 10 MG TABLET PO SCH (09:40)
[2020-07-10] MEDS: FUROSEMIDE 40 MG/4 ML IV SCH ×2 (09:42→17:53)
[2020-07-10] MEDS: FAMOTIDINE 20 MG/2 ML IVPush SCH (09:42)
[2020-07-10] MEDS: ALBUTEROL-IPRATROPIUM MDI INH INH SCH ×3 (10:15→20:00)
[2020-07-10 12:16] VITALS: BP 118/81
[2020-07-10 20:44] VITALS: BP 138/94
[2020-07-10] MEDS ORDERED: FAMOTIDINE 20 MG TABLET PO SCH (21:00)
[2020-07-10 21:26] LABS: CHLORIDE,URINE RANDOM 75 mmol/L; POTASSIUM,URINE RANDOM 26 mmol/L; SODIUM,URINE RANDOM 66 mmol/L
[2020-07-10 21:27] LABS: MICROSCOPIC AUTO
[2020-07-10] MEDS ORDERED: FAMOTIDINE 40 MG TABLET ONE (21:55)
[2020-07-11 00:14] VITALS: BP 115/69
[2020-07-11] MEDS: ALBUTEROL-IPRATROPIUM MDI INH INH SCH ×3 (08:00→14:56)
[2020-07-11 08:51] VITALS: BP 137/74
[2020-07-11] MEDS: LISINOPRIL 10 MG TABLET PO SCH (10:01)
[2020-07-11] MEDS: THIAMINE 100MG TABLET PO SCH (10:01)
[2020-07-11] MEDS: SPIRONOLACTONE 25 MG TABLET PO SCH (10:01)
[2020-07-11] MEDS: CARVEDILOL 6.25 MG TABLET PO SCH ×2 (10:01→20:13)
[2020-07-11] MEDS: FUROSEMIDE 40 MG/4 ML IV SCH ×2 (10:02→16:58)
[2020-07-11 13:29] VITALS: BP 116/87
[2020-07-11] MEDS ORDERED: FAMOTIDINE 40 MG TABLET ONE (19:58)
[2020-07-11 20:05] LABS: ALANINE AMINOTRANSFERASE 19 U/L (12-78); ALBUMIN 3.1 g/dL (3.4-5.0); ANION GAP 10 mmol/L (5-15); CALCIUM 8.8 mg/dL (8.5-10.1); CHLORIDE 105 mmol/L (98-107)
[2020-07-11 20:08] VITALS: BP 132/87
[2020-07-11 20:10] LABS: ALKALINE PHOSPHATASE 107 U/L (45-117); BILIRUBIN,TOTAL 0.6 mg/dL (0.2-1.0); TOTAL PROTEIN 6.8 g/dL (6.4-8.2)
[2020-07-11] MEDS: FAMOTIDINE 20 MG TABLET PO SCH (20:12)
[2020-07-12] MEDS: ALBUTEROL-IPRATROPIUM MDI INH INH SCH ×5 (00:04→20:15)
[2020-07-12 00:05] VITALS: BP_SYST 110; BP_SYST 132; BP_DIAS 67; BP_DIAS 87
[2020-07-12 07:06] VITALS: BP 126/84
[2020-07-12] MEDS: ISOSORBIDE MONONITRATE ER 30 MG TABLET PO SCH (09:11)
[2020-07-12] MEDS: THIAMINE 100MG TABLET PO SCH (09:11)
[2020-07-12] MEDS: CARVEDILOL 6.25 MG TABLET PO SCH (09:11)
[2020-07-12] MEDS: FUROSEMIDE 40 MG/4 ML IV SCH ×2 (09:12→16:41)
[2020-07-12 12:08] LABS: ALANINE AMINOTRANSFERASE 19 U/L (12-78); ANION GAP 7 mmol/L (5-15); CALCIUM 8.7 mg/dL (8.5-10.1); CHLORIDE 106 mmol/L (98-107); CREATININE 2.63 mg/dL (0.7-1.3)
[2020-07-12 12:10] LABS: ALKALINE PHOSPHATASE 91 U/L (45-117); BILIRUBIN,TOTAL 0.5 mg/dL (0.2-1.0); TOTAL PROTEIN 6.3 g/dL (6.4-8.2)
[2020-07-12 13:30] VITALS: BP 121/65
[2020-07-12] MEDS ORDERED: FAMOTIDINE 40 MG TABLET ONE (20:02)
[2020-07-12 20:09] VITALS: BP 109/74
[2020-07-12] MEDS: FAMOTIDINE 20 MG TABLET PO SCH (20:15)
[2020-07-12] MEDS: CARVEDILOL 12.5 MG TABLET PO SCH (20:16)
[2020-07-13 00:18] VITALS: BP 100/63
[2020-07-13 07:54] VITALS: BP 123/80
[2020-07-13] MEDS: ISOSORBIDE MONONITRATE ER 30 MG TABLET PO SCH (07:55)
[2020-07-13] MEDS: FUROSEMIDE 40 MG/4 ML IV SCH (07:55)
[2020-07-13] MEDS: THIAMINE 100MG TABLET PO SCH (07:56)
[2020-07-13] MEDS: CARVEDILOL 12.5 MG TABLET PO SCH (07:56)
[2020-07-13] MEDS: ALBUTEROL-IPRATROPIUM MDI INH INH SCH ×4 (07:56→20:56)
[2020-07-13] MEDS ORDERED: REGADENOSON 0.4 MG/5 ML SYRINGE ONE (09:07)
[2020-07-13] MEDS ORDERED: SODIUM CHLORIDE 0.9%, 500ML IVBOLUS ONE (10:30)
[2020-07-13] MEDS: FUROSEMIDE 20 MG/2 ML IV SCH (11:11)
[2020-07-13 14:04] VITALS: BP 102/68
[2020-07-13 15:52] VITALS: BP 121/80
[2020-07-13] MEDS ORDERED: FAMOTIDINE 40 MG TABLET ONE (20:15)
[2020-07-13] MEDS: CARVEDILOL 3.125 MG TABLET PO SCH (20:46)
[2020-07-13 20:52] VITALS: BP 129/86
[2020-07-13] MEDS ORDERED: FAMOTIDINE 20 MG/2 ML IV SCH (21:00)
[2020-07-14 02:02] VITALS: BP 106/53
[2020-07-14] MEDS: FUROSEMIDE 20 MG/2 ML IV SCH (07:58)
[2020-07-14 07:59] VITALS: BP 163/80
[2020-07-14] MEDS: CARVEDILOL 3.125 MG TABLET PO SCH (07:59)
[2020-07-14] MEDS: THIAMINE 100MG TABLET PO SCH (07:59)
[2020-07-14] MEDS ORDERED: ISOSORBIDE MONONITRATE ER 30 MG TABLET PO SCH (09:00)
[2020-07-14] MEDS ORDERED: LISINOPRIL 5 MG TABLET PO SCH (10:00)
[2020-07-14 10:08] LABS: BASOPHILS % (AUTO) 1 % (0-1); EOSINOPHILS % (AUTO) 5 % (1-7); LYMPHOCYTES % (AUTO) 17 % (22-44); MEAN CORPUSCULAR HEMOGLOBIN 33.3 pg (27.5-34.5); MEAN CORPUSCULAR HGB CONC 33.1 g/dL (33.2-36.2); MEAN PLATELET VOLUME 10.9 fL (7.4-10.4); MONOCYTES % (AUTO) 8 % (2-9); NEUTROPHILS % (AUTO) 70 % (42-75); PLATELET COUNT 122 x10^3/uL (130-400); RED CELL DISTRIBUTION WIDTH 15.6 % (9.4-14.8)
[2020-07-14 10:14] LABS: ANION GAP 6 mmol/L (5-15); CALCIUM 9.2 mg/dL (8.5-10.1); CHLORIDE 106 mmol/L (98-107); CREATININE 2.92 mg/dL (0.7-1.3); MD NO
[2020-07-14] MEDS ORDERED: CARV3.1212 PO (10:33)
[2020-07-14] MEDS ORDERED: LISI5TAB7 PO (10:33)
[2020-07-14] MEDS ORDERED: ISOS30TA8 PO (10:33)
[2020-07-14] MEDS: ALBUTEROL-IPRATROPIUM MDI INH INH SCH ×2 (11:00→12:28)
[2020-07-14 12:52] VITALS: BP 141/90
== END 2020-07-14 15:50 | disposition home or self-care (01) | DRG 194 ==
LOC: ED 16:39 → EDIP 16:47 → 5SO 20:37 → CCU 07-13 10:02 → 5SO 07-13 15:05 → DCLOUNGE 07-14 15:40
PROVIDERS: ADMIT Internal Medicine; ATTEND Hospitalist
PROC: 0T9B70Z Drainage of Bladder with Drainage Device, Via Natural or Artificial Opening (ICD-10-PCS; principal; 2020-07-10)
DX: I50.23 Acute on chronic systolic (congestive) heart failure (principal); E11.9 Type 2 diabetes mellitus without complications; E46 Unspecified protein-calorie malnutrition; Z68.20 Body mass index [BMI] 20.0-20.9, adult; I25.9 Chronic ischemic heart disease, unspecified; F17.200 Nicotine dependence, unspecified, uncomplicated; F10.10 Alcohol abuse, uncomplicated; I35.8 Other nonrheumatic aortic valve disorders; I42.9 Cardiomyopathy, unspecified; I44.7 Left bundle-branch block, unspecified; J44.9 Chronic obstructive pulmonary disease, unspecified; N17.9 Acute kidney failure, unspecified; Z59.0 Homelessness; Z91.14 Patient's other noncompliance with medication regimen; Z95.1 Presence of aortocoronary bypass graft; Z95.5 Presence of coronary angioplasty implant and graft; Z79.84 Long term (current) use of oral hypoglycemic drugs
CPT/HCPCS: 36415; 71045; 76770; 78452; 80048; 80053; 81001; 82436; 83036; 83735; 83880; 84133; 84300; 84443; 84484; 85025; 87081; 93005; 93017; 93306; 94640; 96374; 99285; G0378; J1940; J2785; A9502; J7040

== ENCOUNTER 2020-11-06 21:35 | Emergency (ER) | payer MEDICAID ==
[~2020-11-06] VITALS: Ht 175.3 cm; Wt 71.3 kg
[~2020-11-06 21:35] MED LIST changes: +BUME1TAB21 PO; +CARV3.1212 PO; +CARV6.2512 PO; -FOLI-17 PO; +FOLI1TAB32 PO; +ISOS30TA8 PO; +LISI5TAB7 PO; +MULT-658 PO
[2020-11-06] MEDS ORDERED: ACETAMINOPHEN 500 MG TABLET PO ONE (22:00)
[2020-11-06] MEDS ORDERED: KETOROLAC 30 MG/1 ML IM ONE (22:00)
[2020-11-06] MEDS ORDERED: ACETAMINOPHEN 500 MG TABLET ONE (23:03)
[2020-11-06] MEDS ORDERED: KETOROLAC 30 MG/1 ML ONE (23:03)
--- NOTE | 2020-11-07 00:07 | NUR ---
PT DECONED OF BED BUGS. PT PERFORMED INSENTIVE SPEROMERTER AT 1500
[2020-11-07 00:08] VITALS: BP 145/87
== END 2020-11-07 00:10 | disposition home or self-care (01) ==
LOC: ED 11-07 00:04
DX: S22.42XA Multiple fractures of ribs, left side, initial encounter for closed fracture (principal); I10 Essential (primary) hypertension; J44.9 Chronic obstructive pulmonary disease, unspecified; F17.210 Nicotine dependence, cigarettes, uncomplicated; W06.XXXA Fall from bed, initial encounter; Y93.89 Activity, other specified; Y92.098 Other place in other non-institutional residence as the place of occurrence of the external cause; Y99.8 Other external cause status
CPT/HCPCS: 71101; 96372; 99283; 99406; J1885

== ENCOUNTER 2020-12-12 12:34 | Inpatient (IN) | payer MEDICAID ==
[~2020-12-12] VITALS: Ht 175.3 cm; Wt 75.6 kg
--- NOTE | 2020-12-12 12:50 | NUR ---
BIB EMS FOR C/O R SHOULDER AND NECK PAIN 8/ WHEN PT MOVING 2/10 WHEN PT RESTING STARTED 2 DAYS AGO. DENIES INJURY/TRAUMA. STATES "I THINK I SLEPT ON IT WRONG". PT HAS HX CHRONIC ETOH ABUSE. PT DRANK 1 PINT VODKA FROM LAST NIGHT 2100 TO TODAY AFTERNOON OUTREACH SPECIALIST FOR PAIN VS OUTREACH SPECIALIST BP 203/168, HR 103, 96% RA, BS 174. PT RESTING ON GURNEY. NADN. MONITORS APPLIED. BP REMAINS ELEVATED.
[2020-12-12] MEDS ORDERED: MORPHINE SULFATE 4 MG/ML, 1ML ONE ×2 (13:09→14:39)
[2020-12-12] MEDS ORDERED: LABETALOL 5MG/ML, 20ML ONE (13:09)
[2020-12-12] MEDS: morphine SULFATE 10 MG/ML, 1ML IVPush ONE ×2 (13:28→14:07)
[2020-12-12] MEDS: LABETALOL 5MG/ML, 20ML IVPush ONE ×2 (13:29→14:07)
--- NOTE | 2020-12-12 14:02 | NUR ---
UNABLE TO START PIV FOR SUSTAINABILITY ANALYST X 2. SERA MC AT BEDSIDE ATTEMPTING PIV.
[2020-12-12 14:34] LABS: HCT (SEDRATE) 41.3 % (39.2-51.8)
[2020-12-12 14:36] LABS: MEAN CORPUSCULAR HEMOGLOBIN 32.9 pg (27.5-34.5); MEAN CORPUSCULAR HGB CONC 33.9 g/dL (33.2-36.2); MEAN PLATELET VOLUME 9.4 fL (7.4-10.4); PLATELET COUNT 123 x10^3/uL (130-400); RED BLOOD COUNT 4.15 x10^6/uL (4.38-5.82); RED CELL DISTRIBUTION WIDTH 17.2 % (9.4-14.8)
[2020-12-12 14:41] LABS: ALBUMIN 3.6 g/dL (3.4-5.0); ANION GAP 8 mmol/L (5-15); CALCIUM 8.7 mg/dL (8.5-10.1); CHLORIDE 107 mmol/L (98-107); CREATININE 1.78 mg/dL (0.7-1.3)
[2020-12-12] MEDS ORDERED: MORPHINE SULFATE 4 MG/ML, 1ML IVPush ONE (15:00)
[2020-12-12] MEDS ORDERED: LABETALOL 5MG/ML, 20ML IVPush ONE (15:00)
[2020-12-12 15:02] LABS: MD YES
[2020-12-12 15:04] LABS: ANISOCYTOSIS 1+; BAND#(MANUAL) 0.28 x10^3/uL; BANDS%(MANUAL) 3 % (0-7); LYMPH#(MANUAL) 0.94 x10^3/uL (1-3.4); LYMPHS% (MANUAL) 10 % (22-44); MONOS#(MANUAL) 0.85 x10^3/uL (0.3-2.7); MONOS% (MANUAL) 9 % (2-9); MYELOCYTES# (MANUAL) 0.09 x10^3/uL (0-0); MYELOCYTES% (MANUAL) 1 % (0-0); SEG#(MANUAL) 7.24 x10^3/uL (1.8-6.8); SEGS% (MANUAL) 77 % (42-75)
[2020-12-12 15:05] LABS: POLYCHROMASIA 1+
[2020-12-12 15:06] LABS: <PLATELET ESTIMATE> DECREASED; <PLT MORPHOLOGY> NORMAL PLT MORPH; ECHINOCYTES 1+; OVALOCYTES 1+
--- NOTE | 2020-12-12 15:17 | NUR ---
PT RESTING ON GURNEY. NADN. BP REMAINS ELEVATED. ERP DR. THACKER NOTIFIED.
[2020-12-12] MEDS ORDERED: HYDROmorphone 1 MG/ML, 1ML INJ ONE (15:25)
[2020-12-12] MEDS ORDERED: HYDROmorphone 2 MG/ML, 1ML IVPush PRN (15:30)
[2020-12-12] MEDS ORDERED: LIDOCAINE-MPF 1%, 5ML ONE (15:39)
--- NOTE | 2020-12-12 16:03 | NUR ---
PT AMBULATORY IN ROOM. PT STATES PAIN BUT NOW HAS LIMITED ROM.
--- NOTE | 2020-12-12 16:14 | NUR ---
BREAK RN: PT USED URINAL. PT HELPED BACK INTO BED. VS STABLE. PT INSTRUCTED TO CALL FOR HELP IF HE NEEDS TO GET OUT OF BED. CALL LIGHT IN PLACE. NO ACUTE DISTRESS NOTED. WILL CONTINUE TO MONITOR WHILE PRIMARY RN IS ON BREAK.
--- NOTE | 2020-12-12 16:24 | NUR ---
BREAK RN: DR THACKER HAS UPDATED PATIENT. PATIENT TO GO TO IR
[2020-12-12] MEDS ORDERED: LIDOCAINE 1%, 10ML ONE (16:33)
--- NOTE | 2020-12-12 16:49 | NUR ---
PT TAKEN TO IR IN STABLE CONDITION.
--- NOTE | 2020-12-12 17:22 | NUR ---
PT BACK FROM IR. BP ASSESSED. REMAINS ELEVATED. ERP DR. THACKER NOTIFIED.
--- NOTE | 2020-12-12 17:36 | NUR ---
PT STATES INABILITY TO URINATE. PT REFUSING TO BE STRAIGHT CATH'D. ERP DR. THACKER AWARE.
[2020-12-12] MEDS ORDERED: hydrALAzine 20 MG/ML, 1ML ONE (17:38)
[2020-12-12] MEDS ORDERED: CARV6.252 PO (17:47)
[2020-12-12] MEDS ORDERED: FURO40TA6 PO (17:47)
[2020-12-12] MEDS ORDERED: ASPI-963 PO (17:47)
[2020-12-12] MEDS ORDERED: ATOR-2 PO (17:47)
[2020-12-12] MEDS ORDERED: HYDR-3343 PO (17:47)
[2020-12-12] MEDS ORDERED: LOSA50TA14 PO (17:47)
[2020-12-12] MEDS ORDERED: FOLI1TAB32 PO (17:47)
[2020-12-12] MEDS ORDERED: hydrALAzine 20 MG/ML, 1ML IV ONE (18:00)
--- NOTE | 2020-12-12 18:08 | NUR ---
PT STILL UNABLE TO URINATE. PT AGREEABLE TO STRAIGHT CATH. 300 ML URINE REMOVED FROM BLADDER VIA STRAIGHT CATH. PT RESTING ON GURNEY. REPOSITIONED FOR COMFORT.
[2020-12-12] MEDS ORDERED: ALBUTEROL-IPRATROPIUM MDI INH INH ONE (18:30)
--- NOTE | 2020-12-12 18:41 | NUR ---
PT SCREAMING IN ROOM. STATES HE WANTS WATER. PT EDUCATED ON IMPORTANCE OF REMAINING NPO. PT REMAINS UPSET. SITTER NOW AT BEDSIDE.
--- NOTE | 2020-12-12 18:44 | NUR ---
PT BP REMAINS ELEVATED AFTER BP MEDICATION. ERP DR. THACKER NOTIFIED.
[2020-12-12] MEDS ORDERED: LORazepam 2 MG/ML, 1ML ONE (18:45)
[2020-12-12] MEDS ORDERED: ALBUTEROL HFA 90 MCG/SPRAY INH PRN (19:00)
[2020-12-12] MEDS ORDERED: LORazepam 2 MG/ML, 1ML IVPush ONE (19:00)
[2020-12-12] MEDS ORDERED: METOPROLOL 1 MG/ML, 5ML ONE (19:06)
--- NOTE | 2020-12-12 19:09 | NUR ---
PT HR NOTED TO BE ELEVATED TO 134 AND BP REMAINS ELEVATED. EKG COMPLETED AND SHOWN TO ERP DR. THACKER. PER ERP START IVF AND GIVE METOPROLOL TO SLOW DOWN HR AND REPEAT EKG.
--- NOTE | 2020-12-12 19:12 | NUR ---
PER ERP LAW NO NEED FOR IV ABX AT THIS TIME.
--- NOTE | 2020-12-12 19:25 | NUR ---
PT SLEEPING ON GURNEY. NADN. ROSETER REMAINS AT BEDSIDE.
[2020-12-12 19:28] LABS: INTERNATIONAL NORMALIZED RATIO 1.02 (0.93-1.1); PROTHROMBIN TIME 10.9 Seconds (9.6-11.5)
[2020-12-12 19:30] LABS: ALBUMIN 3.5 g/dL (3.4-5.0); BILIRUBIN, DIRECT 0.6 mg/dL (0.1-0.2)
[2020-12-12] MEDS ORDERED: SODIUM CHLORIDE 0.9% 1,000ML IVBOLUS ONE (19:30)
[2020-12-12] MEDS ORDERED: METOPROLOL 1 MG/ML, 5ML IVPush ONE (19:30)
[2020-12-12 19:32] LABS: BILIRUBIN,INDIRECT 0.6 mg/dL (0.0-2.0); BILIRUBIN,TOTAL 1.2 mg/dL (0.2-1.0); TOTAL PROTEIN 7.8 g/dL (6.4-8.2)
--- NOTE | 2020-12-12 19:55 | NUR ---
REPORT GIVEN TO REBECA DEL REAL RN. ALL QUESTIONS ANSWERED. AWAITING PT TRANSPORT.
[2020-12-12] MEDS ORDERED: BISACODYL 10 MG SUPP PR PRN (20:30)
[2020-12-12] MEDS ORDERED: hydrALAzine 20 MG/ML, 1ML IVPush PRN (20:30)
[2020-12-12] MEDS ORDERED: ACETAMINOPHEN 325 MG TABLET PO PRN (20:30)
[2020-12-12] MEDS ORDERED: NS + 20MEQ KCL 1,000 ML IV SCH (20:30)
[2020-12-12] MEDS ORDERED: ONDANSETRON 2MG/ML, 2ML IVPush PRN (20:30)
[2020-12-12] MEDS ORDERED: CHLORDIAZEPOXIDE 25 MG CAPSULE PO PRN (20:30)
[2020-12-12] MEDS ORDERED: LORazepam 2 MG/ML, 1ML IVPush PRN (20:30)
[2020-12-12] MEDS ORDERED: POLYETHYLENE GLYCOL 17 GM PACKET PO PRN (20:30)
[2020-12-12] MEDS ORDERED: THIAMINE 100MG TABLET PO SCH (21:00)
[2020-12-12 21:02] VITALS: BP 190/98
[2020-12-12] MEDS: CARVEDILOL 6.25 MG TABLET PO SCH (21:44)
[2020-12-12] MEDS: ATORVASTATIN 40 MG TABLET PO SCH (21:44)
[2020-12-12 22:30] VITALS: BP 128/83
[2020-12-13 02:00] VITALS: BP 156/82
[2020-12-13 05:39] LABS: BASOPHILS % (AUTO) 1 % (0-1); EOSINOPHILS % (AUTO) 0 % (1-7); LYMPHOCYTES % (AUTO) 11 % (22-44); MEAN CORPUSCULAR HGB CONC 33.7 g/dL (33.2-36.2); MEAN PLATELET VOLUME 11.3 fL (7.4-10.4); MONOCYTES % (AUTO) 13 % (2-9); NEUTROPHILS % (AUTO) 75 % (42-75); PLATELET COUNT 104 x10^3/uL (130-400); RED BLOOD COUNT 3.62 x10^6/uL (4.38-5.82); RED CELL DISTRIBUTION WIDTH 17.9 % (9.4-14.8)
[2020-12-13 05:50] LABS: ANION GAP 10 mmol/L (5-15); CALCIUM 8.1 mg/dL (8.5-10.1); CHLORIDE 111 mmol/L (98-107); MD NO
[2020-12-13 05:51] LABS: CREATININE 1.84 mg/dL (0.7-1.3)
[2020-12-13] MEDS: ALBUTEROL-IPRATROPIUM MDI INH INH SCH ×4 (06:00→19:15)
[2020-12-13 06:25] VITALS: BP 160/91
[2020-12-13] MEDS ORDERED: LORazepam 1MG TABLET PO PRN ×2 (07:00)
[2020-12-13] MEDS ORDERED: LORazepam 0.5MG TABLET PO PRN (07:00)
[2020-12-13] MEDS ORDERED: VANCOMYCIN 1,700 MG in SODIUM CHLORIDE 0.9% 250 ML IV ONE (07:00)
[2020-12-13] MEDS ORDERED: PHARMACOKINETIC MONITORING MC PRN (07:00)
[2020-12-13] MEDS ORDERED: PHARMACOKINETIC CONSULTATION MC ONE (07:00)
[2020-12-13] MEDS ORDERED: VANCOMYCIN PER PHARMACY MC PRN (07:00)
[2020-12-13] MEDS ORDERED: LORazepam 2 MG/ML, 1ML IV PRN ×3 (07:00)
[2020-12-13] MEDS: CEFTRIAXONE PMX 2GM/50ML 50 ML IVPB SCH (07:11)
[2020-12-13] MEDS: DIAZEPAM 10 MG TABLET PO SCH ×3 (07:11→19:50)
[2020-12-13] MEDS: POTASSIUM CHLORIDE 20 MEQ, MAGNESIUM SULFATE 1 GM, THIAMINE 200 MG, FOLIC ACID 1 MG in ... IV SCH (07:19)
[2020-12-13] MEDS: CARVEDILOL 6.25 MG TABLET PO SCH ×2 (08:41→19:57)
[2020-12-13] MEDS: MULTIVITAMIN 1 TABLET PO SCH (08:41)
[2020-12-13] MEDS: FOLIC ACID 1 MG TABLET PO SCH (08:41)
[2020-12-13] MEDS: LOSARTAN 25MG TABLET PO SCH (08:41)
[2020-12-13] MEDS: ISOSORBIDE MONONITRATE ER 30 MG TABLET PO SCH (08:42)
[2020-12-13] MEDS: SENNA/DOCUSATE TABLET PO SCH (08:43)
[2020-12-13] MEDS ORDERED: FUROSEMIDE 40 MG TABLET PO SCH (09:00)
[2020-12-13 12:10] LABS: MICROSCOPIC INDICATED
[2020-12-13 12:30] VITALS: BP 123/78
[2020-12-13 19:35] VITALS: BP 127/79
[2020-12-13] MEDS: ATORVASTATIN 40 MG TABLET PO SCH (19:58)
[2020-12-14 00:47] VITALS: BP 131/76
[2020-12-14] MEDS: DIAZEPAM 10 MG TABLET PO SCH (00:53)
[2020-12-14] MEDS: ALBUTEROL-IPRATROPIUM MDI INH INH SCH ×5 (03:37→19:30)
[2020-12-14 03:51] LABS: BASOPHILS % (AUTO) 0 % (0-1); EOSINOPHILS % (AUTO) 2 % (1-7); LYMPHOCYTES % (AUTO) 8 % (22-44); MEAN CORPUSCULAR HEMOGLOBIN 32.9 pg (27.5-34.5); MEAN CORPUSCULAR HGB CONC 33.5 g/dL (33.2-36.2); MEAN PLATELET VOLUME 9.5 fL (7.4-10.4); MONOCYTES % (AUTO) 10 % (2-9); NEUTROPHILS % (AUTO) 80 % (42-75); PLATELET COUNT 96 x10^3/uL (130-400); RED BLOOD COUNT 3.35 x10^6/uL (4.38-5.82); RED CELL DISTRIBUTION WIDTH 18.1 % (9.4-14.8)
[2020-12-14 03:56] LABS: MD NO
[2020-12-14 03:59] LABS: ALBUMIN 2.6 g/dL (3.4-5.0); ANION GAP 8 mmol/L (5-15); CALCIUM 8.2 mg/dL (8.5-10.1); CHLORIDE 110 mmol/L (98-107)
[2020-12-14 04:04] LABS: ALANINE AMINOTRANSFERASE 16 U/L (12-78); ALKALINE PHOSPHATASE 96 U/L (45-117); TOTAL PROTEIN 6.1 g/dL (6.4-8.2)
[2020-12-14 06:23] VITALS: BP 133/86
[2020-12-14] MEDS ORDERED: DIAZEPAM 5 MG TABLET PO SCH ×2 (07:00→13:00)
[2020-12-14] MEDS: CEFTRIAXONE PMX 2GM/50ML 50 ML IVPB SCH (07:55)
[2020-12-14] MEDS ORDERED: VANCOMYCIN 1,400 MG in SODIUM CHLORIDE 0.9% 250 ML IV SCH (08:00)
[2020-12-14] MEDS: MULTIVITAMIN 1 TABLET PO SCH ×2 (08:01→09:23)
[2020-12-14] MEDS: CARVEDILOL 6.25 MG TABLET PO SCH ×3 (08:01→21:05)
[2020-12-14] MEDS: LOSARTAN 25MG TABLET PO SCH ×2 (08:02→09:23)
[2020-12-14] MEDS: FUROSEMIDE 40 MG TABLET PO SCH ×2 (08:02→09:23)
[2020-12-14] MEDS: FOLIC ACID 1 MG TABLET PO SCH (08:02)
[2020-12-14] MEDS: ISOSORBIDE MONONITRATE ER 30 MG TABLET PO SCH (09:23)
[2020-12-14] MEDS: SENNA/DOCUSATE TABLET PO SCH (09:23)
[2020-12-14] MEDS: AMPICILLIN/SULBACTAM 1,500 MG in SODIUM CHLORIDE 0.9% 50 ML IV SCH ×3 (09:55→22:17)
[2020-12-14] MEDS: POTASSIUM CHLORIDE 20 MEQ, MAGNESIUM SULFATE 1 GM, THIAMINE 200 MG, FOLIC ACID 1 MG in ... IV SCH (10:44)
[2020-12-14 12:01] VITALS: BP 152/90
[2020-12-14] MEDS ORDERED: morphine SULFATE 10 MG/ML, 1ML IVPush PRN (13:00)
[2020-12-14 13:43] VITALS: BP 155/89
[2020-12-14 18:38] VITALS: BP 149/86
[2020-12-14] MEDS: ATORVASTATIN 40 MG TABLET PO SCH (21:05)
[2020-12-15 02:00] VITALS: BP 137/82
[2020-12-15] MEDS: AMPICILLIN/SULBACTAM 1,500 MG in SODIUM CHLORIDE 0.9% 50 ML IV SCH ×2 (04:09→10:31)
[2020-12-15] MEDS: ALBUTEROL-IPRATROPIUM MDI INH INH SCH ×2 (04:10→11:00)
[2020-12-15 06:24] VITALS: BP 152/92
[2020-12-15] MEDS: SENNA/DOCUSATE TABLET PO SCH (08:10)
[2020-12-15] MEDS: CARVEDILOL 6.25 MG TABLET PO SCH (08:11)
[2020-12-15] MEDS: ISOSORBIDE MONONITRATE ER 30 MG TABLET PO SCH (08:12)
[2020-12-15] MEDS: MULTIVITAMIN 1 TABLET PO SCH (08:12)
[2020-12-15] MEDS: FOLIC ACID 1 MG TABLET PO SCH (08:12)
[2020-12-15] MEDS: FUROSEMIDE 40 MG TABLET PO SCH ×2 (08:13→08:18)
[2020-12-15] MEDS ORDERED: LOSARTAN 50MG TABLET PO SCH (09:00)
[2020-12-15] MEDS ORDERED: ATOR-2 PO (11:06)
[2020-12-15] MEDS ORDERED: LOSA50TA14 PO (11:06)
[2020-12-15] MEDS ORDERED: CARV6.252 PO (11:06)
[2020-12-15] MEDS ORDERED: IPRA4AER INH (11:06)
[2020-12-15] MEDS ORDERED: HYDR-3343 PO (11:06)
[2020-12-15] MEDS ORDERED: FURO40TA6 PO (11:06)
[2020-12-15] MEDS ORDERED: AMOX1TAB61 PO (11:06)
[2020-12-15] MEDS ORDERED: ISOS30TA8 PO (11:06)
== END 2020-12-15 13:03 | disposition home or self-care (01) | DRG 351 ==
LOC: ED 19:01 → 4WST 20:50 → DCLOUNGE 12-15 12:49
PROVIDERS: ADMIT Internal Medicine; ATTEND Hospitalist
PROC: 0R9J3ZZ Drainage of Right Shoulder Joint, Percutaneous Approach (ICD-10-PCS; principal; 2020-12-12)
DX: M25.011 Hemarthrosis, right shoulder (principal); J96.21 Acute and chronic respiratory failure with hypoxia; J18.9 Pneumonia, unspecified organism; I13.0 Hypertensive heart and chronic kidney disease with heart failure and stage 1 through stage 4 chronic kidney disease, or unspecified chronic kidney disease; E11.22 Type 2 diabetes mellitus with diabetic chronic kidney disease; E87.2 Acidosis; I27.20 Pulmonary hypertension, unspecified; I50.42 Chronic combined systolic (congestive) and diastolic (congestive) heart failure; N18.4 Chronic kidney disease, stage 4 (severe); E87.6 Hypokalemia; F10.239 Alcohol dependence with withdrawal, unspecified; F17.210 Nicotine dependence, cigarettes, uncomplicated; I16.0 Hypertensive urgency; I25.5 Ischemic cardiomyopathy; J44.0 Chronic obstructive pulmonary disease with (acute) lower respiratory infection; K74.60 Unspecified cirrhosis of liver
CPT/HCPCS: 20610; 36415; 71045; 76700; 80048; 80053; 80076; 81001; 82040; 82570; 82945; 83036; 83615; 83735; 84156; 84157; 84560; 85025; 85610; 85651; 85810; 86140; 87070; 87205; 89050; 89060; 93005; 94640; 96374; 96375; G0378; J0696; J1170; J3370; J3411; J3475; J3480; J0295; J0360; J2060; J2270; J7030; J7050

== ENCOUNTER 2021-02-02 06:03 | Inpatient (IN) | payer MEDICAID ==
[~2021-02-02] VITALS: Ht 175.3 cm; Wt 70.3 kg
[~2021-02-02 06:03] MED LIST changes: +AMOX1TAB61 PO; +ASPI-963 PO; +ATOR-2 PO; +CARV6.252 PO; +FURO40TA6 PO; +HYDR-3343 PO; +LOSA50TA14 PO
[2021-02-02] MEDS ORDERED: ALBUTEROL/IPRATROPIUM 2.5MG/0.5MG, 3 ML ONE ×2 (06:10→07:30)
[2021-02-02] MEDS ORDERED: ALBUTEROL/IPRATROPIUM 2.5MG/0.5MG, 3 ML NPPB PRN (06:30)
[2021-02-02] MEDS ORDERED: SODIUM CHLORIDE FLUSH 10ML SYR IVF ONE (06:30)
--- NOTE | 2021-02-02 06:30 | NUR ---
Patient BIBA from home c/o SOB which woke him up this am. Patient has a hx of COPD and CHF. Patient states his legs have swollen up the last couple days. Bilat lower extremities +3 pitting edema. Patient tripoding and speaking in 1-2 word sentences; respirations rapid. Pale and diaphoretic.
[2021-02-02] MEDS ORDERED: PLEASE ENTER HEIGHT AND WEIGHT MC SCH (07:00)
[2021-02-02 07:33] LABS: ALBUMIN 3.4 g/dL (3.4-5.0); ANION GAP 10 mmol/L (5-15); CALCIUM 8.6 mg/dL (8.5-10.1); CHLORIDE 107 mmol/L (98-107)
--- NOTE | 2021-02-02 07:35 | NUR ---
RECEIVED REPORT FROM DEANDRA. PT TRIPODING ON EOB WITH SEVERE WOB & NC IN PLACE DURING REPORT. PT MOD ANXIOUS REQUIRING FREQUENT REDIRECTION/REASSURANCE TO KEEP SUPPL O2 IN PLACE (PT KEEPS PULLING IT AWAY FROM FACE), RT PAGED & ADMINISTERED NPPB TX THEN PLACED PT ON BIPAP; UNABLE TO OBTAIN PIV ACCESS DESPITE MULT ATTEMPTS BY SEVERAL STAFF- ERP AWARE & AWAITING PICC PLACEMENT ORDER AT THIS TIME.
[2021-02-02 07:36] LABS: CREATININE 2.11 mg/dL (0.7-1.3)
[2021-02-02 07:37] LABS: ALANINE AMINOTRANSFERASE 27 U/L (12-78); ALKALINE PHOSPHATASE 171 U/L (45-117); BILIRUBIN,TOTAL 1.6 mg/dL (0.2-1.0); TOTAL PROTEIN 7.9 g/dL (6.4-8.2)
[2021-02-02 07:40] LABS: TROPONIN I 0.165 ng/mL (0.000-0.045)
--- NOTE | 2021-02-02 07:41 | NUR ---
Multiple IVs attempted with no success. Spoke with Dr. Reynolds regarding a potential PICC line; she agreed. Awaiting orders. Report given to SERA Bell and Ranulfo RN. Patient care transferred.
[2021-02-02 07:47] LABS: BASOPHILS % (AUTO) 1 % (0-1); EOSINOPHILS % (AUTO) 3 % (1-7); LYMPHOCYTES % (AUTO) 11 % (22-44); MEAN CORPUSCULAR HEMOGLOBIN 32.4 pg (27.5-34.5); MEAN CORPUSCULAR HGB CONC 33.5 g/dL (33.2-36.2); MEAN PLATELET VOLUME 10.3 fL (7.4-10.4); MONOCYTES % (AUTO) 7 % (2-9); NEUTROPHILS % (AUTO) 79 % (42-75); PLATELET COUNT 169 x10^3/uL (130-400); RED BLOOD COUNT 4.19 x10^6/uL (4.38-5.82); RED CELL DISTRIBUTION WIDTH 18.9 % (9.4-14.8)
--- NOTE | 2021-02-02 07:55 | NUR ---
PT CALMER WITH DECREASED WOB WHILE ON BIPAP, RESPONDS APPROP TO STAFF, COMFORT MEASURES PROVIDED, CALL LIGHT WITHIN REACH.
[2021-02-02] MEDS ORDERED: methylPREDNISolone SOD SUCC 125 MG/2 ML IV ONE (08:00)
[2021-02-02] MEDS ORDERED: SODIUM CHLORIDE FLUSH 10ML SYR IVF PRN (08:00)
[2021-02-02] MEDS ORDERED: FUROSEMIDE 40 MG/4 ML IV ONE ×2 (08:00→10:00)
[2021-02-02 08:01] LABS: MD SCAN
--- NOTE | 2021-02-02 08:15 | NUR ---
RT DECREASED BIPAP TO 50%- PT TOLERATING WELL.
--- NOTE | 2021-02-02 08:42 | NUR ---
REPORT GIVEN TO SERA MIMS.
--- NOTE | 2021-02-02 09:07 | NUR ---
IR AT BEDSIDE FOR PICC LINE INSERTION.
[2021-02-02] MEDS ORDERED: ACETAMINOPHEN 325 MG TABLET PO PRN (09:30)
[2021-02-02] MEDS ORDERED: BISACODYL 10 MG SUPP PR PRN (09:30)
[2021-02-02] MEDS ORDERED: LACTULOSE 10 GM/15 ML UDC PO PRN (09:30)
[2021-02-02] MEDS ORDERED: HYDROcodone/APAP 5/325 TABLET PO PRN (09:30)
[2021-02-02] MEDS ORDERED: ENALAPRILAT 1.25 MG/ML, 2ML IVPush PRN (09:30)
[2021-02-02] MEDS ORDERED: ONDANSETRON 2MG/ML, 2ML IVPush PRN (09:30)
[2021-02-02] MEDS ORDERED: hydrALAzine 20 MG/ML, 1ML IVPush PRN (09:30)
--- NOTE | 2021-02-02 09:31 | NUR ---
BIPAP REMOVED BRIEFY TO ALLOW PT TO TAKE A FEW SIPS OF WATER PER PT REQUEST. ONCE PT DONE DRINKING, PT BECAME EXTREMELY ANXIOUS YELLING TO PUT THE MASK BACK ON. PT MAINTAINED SATS >95% THROUGHOUT. BIPAP IN PLACE. NADN. CHRISTIANSON AT BEDSIDE FOR PICC.
--- NOTE | 2021-02-02 09:39 | NUR ---
PT DELAYING IR PROCEDURE, D/T SOB WHEN SITTING UP IN [facility].
--- NOTE | 2021-02-02 09:42 | NUR ---
PER PLAN IS TO INTUBATE PT.
[2021-02-02] MEDS ORDERED: methylPREDNISolone SOD SUCC 125 MG/2 ML ONE (09:53)
[2021-02-02] MEDS ORDERED: hydrALAzine 20 MG/ML, 1ML ONE (09:54)
[2021-02-02] MEDS ORDERED: FUROSEMIDE 40 MG/4 ML ONE (09:54)
[2021-02-02] MEDS ORDERED: HEPARIN 5,000 UNITS/ML, 1ML ONE (09:54)
[2021-02-02] MEDS: HEPARIN 5,000 UNITS/ML, 1ML SQ SCH ×2 (09:59→16:32)
[2021-02-02] MEDS: CARVEDILOL 6.25 MG TABLET PO SCH ×2 (10:00→20:56)
[2021-02-02] MEDS: methylPREDNISolone SOD SUCC 125 MG/2 ML IVPush SCH ×3 (10:00→22:10)
[2021-02-02] MEDS: ISOSORBIDE MONONITRATE ER 30 MG TABLET PO SCH (10:00)
[2021-02-02] MEDS: LOSARTAN 50MG TABLET PO SCH (10:00)
[2021-02-02] MEDS ORDERED: PHARMACY MAY ADJ FOR RENAL FX MC PRN (10:00)
--- NOTE | 2021-02-02 10:10 | NUR ---
PER RESP INTUBATION NOT INDICATED AT THIS TIME. MARLYN ZAMORA ABLE TO START PIV. PT MEDICATED PER EMAR.
[2021-02-02] MEDS ORDERED: CARVEDILOL 6.25 MG TABLET ONE (10:16)
[2021-02-02] MEDS ORDERED: MORPHINE SULFATE 4 MG/ML, 1ML IVPush PRN (10:30)
[2021-02-02] MEDS ORDERED: THIAMINE 100 MG in SODIUM CHLORIDE 0.9% 50 ML IV SCH (10:30)
[2021-02-02] MEDS ORDERED: DEXTROSE 4 GM TAB.CHEW PO PRN (10:30)
[2021-02-02] MEDS ORDERED: GLUCAGON 1 MG IM PRN (10:30)
[2021-02-02] MEDS ORDERED: DEXTROSE 50%, 50ML SYRINGE IVPush PRN (10:30)
[2021-02-02] MEDS ORDERED: ENALAPRILAT 1.25 MG/ML, 1ML ONE (10:43)
--- NOTE | 2021-02-02 10:53 | NUR ---
HOLDING PO MEDS D/T PTS NPO STATUS.
[2021-02-02] MEDS: INSULIN LISPRO 100 UNITS/ML, PEN SQ-INSULIN SCH ×3 (11:00→20:57)
[2021-02-02] MEDS: ALBUTEROL/IPRATROPIUM 2.5MG/0.5MG, 3 ML NEB SCH ×3 (11:00→22:54)
[2021-02-02] MEDS ORDERED: MORPHINE SULFATE 4 MG/ML, 1ML ONE (11:03)
--- NOTE | 2021-02-02 11:11 | NUR ---
REPORT GIVEN TO MARCELLA ZAMORA. IR AT BEDSIDE FOR 2ND ATTEMPT AT PICC LINE. PT MORE RELAXED AT THIS TIME.
[2021-02-02] MEDS ORDERED: LEVOFLOXACIN/PMX 500MG/100ML 100 ML ONE (11:19)
[2021-02-02] MEDS: LEVOFLOXACIN/PMX 500MG/100ML 100 ML IV SCH (11:24)
--- NOTE | 2021-02-02 11:26 | NUR ---
VERBAL ORDER FROM IR FOR CXR TO CONFIRM PLACEMENT OF PICC.
--- NOTE | 2021-02-02 11:42 | NUR ---
BP IMPROVED AFTER MEDS. PT TACHYPNEIC, OTHER VS WDL. AWAITING RESP FOR TRANSFER.
--- NOTE | 2021-02-02 12:07 | NUR ---
PT TRANSFERED TO CCU ON 8L OXYMASK. PT MORE CALM, VSS, NADN.
--- NOTE | 2021-02-02 12:07 | NUR ---
Macey harrison in ED - 02/02/21 at 1207 by ROGELIO PT TRANSFERED TO [facility] ON 8L OXYMASK. PT CEDRIC AHUMADA, JUAN MARTIN.
[2021-02-02] MEDS ORDERED: ISOSORBIDE MONONITRATE ER 30 MG TABLET PO ONE (15:00)
[2021-02-02] MEDS ORDERED: LOSARTAN 25MG TABLET PO ONE (15:00)
[2021-02-02] MEDS ORDERED: CARVEDILOL 6.25 MG TABLET PO ONE (15:00)
[2021-02-02 15:59] LABS: TROPONIN I 0.159 ng/mL (0.000-0.045)
[2021-02-02] MEDS: FUROSEMIDE 40 MG/4 ML IV SCH (16:31)
[2021-02-02 18:48] VITALS: BP 116/73
[2021-02-02] MEDS: THIAMINE 100MG TABLET PO SCH (20:56)
[2021-02-02] MEDS: SODIUM CHLORIDE FLUSH 10ML SYR IVF SCH (20:57)
[2021-02-02 21:44] LABS: TROPONIN I 0.087 ng/mL (0.000-0.045)
[2021-02-03 00:36] VITALS: BP 126/76
[2021-02-03] MEDS: HEPARIN 5,000 UNITS/ML, 1ML SQ SCH ×3 (00:53→18:23)
[2021-02-03] MEDS: methylPREDNISolone SOD SUCC 125 MG/2 ML IVPush SCH ×3 (04:53→18:23)
[2021-02-03 05:25] LABS: BASOPHILS % (AUTO) 0 % (0-1); EOSINOPHILS % (AUTO) 0 % (1-7); LYMPHOCYTES % (AUTO) 7 % (22-44); MEAN CORPUSCULAR HEMOGLOBIN 32.5 pg (27.5-34.5); MEAN CORPUSCULAR HGB CONC 34.2 g/dL (33.2-36.2); MEAN PLATELET VOLUME 10.5 fL (7.4-10.4); MONOCYTES % (AUTO) 3 % (2-9); NEUTROPHILS % (AUTO) 90 % (42-75); PLATELET COUNT 86 x10^3/uL (130-400); RED BLOOD COUNT 3.63 x10^6/uL (4.38-5.82); RED CELL DISTRIBUTION WIDTH 18.1 % (9.4-14.8)
[2021-02-03 05:34] LABS: CHLORIDE 101 mmol/L (98-107)
[2021-02-03 05:51] LABS: ALANINE AMINOTRANSFERASE 18 U/L (12-78); ALBUMIN 2.5 g/dL (3.4-5.0); ALKALINE PHOSPHATASE 111 U/L (45-117); ANION GAP 9 mmol/L (5-15); CALCIUM 8.1 mg/dL (8.5-10.1); CREATININE 2.26 mg/dL (0.7-1.3); TOTAL PROTEIN 5.9 g/dL (6.4-8.2)
[2021-02-03 05:57] LABS: MD NO
[2021-02-03 07:14] VITALS: BP 129/82
[2021-02-03] MEDS ORDERED: PANTOPRAZOLE 40 MG IV IVPush SCH (07:30)
[2021-02-03] MEDS: INSULIN LISPRO 100 UNITS/ML, PEN SQ-INSULIN SCH ×4 (08:46→21:06)
[2021-02-03] MEDS: FUROSEMIDE 40 MG/4 ML IV SCH (08:46)
[2021-02-03] MEDS: ISOSORBIDE MONONITRATE ER 30 MG TABLET PO SCH (08:47)
[2021-02-03] MEDS: FOLIC ACID 1 MG TABLET PO SCH (08:47)
[2021-02-03] MEDS: MULTIVITAMIN 1 TABLET PO SCH (08:47)
[2021-02-03] MEDS: CARVEDILOL 6.25 MG TABLET PO SCH ×2 (08:47→21:05)
[2021-02-03] MEDS: THIAMINE 100MG TABLET PO SCH ×2 (08:47→21:05)
[2021-02-03] MEDS: LOSARTAN 50MG TABLET PO SCH (08:47)
[2021-02-03] MEDS: SODIUM CHLORIDE FLUSH 10ML SYR IVF SCH ×2 (08:48→21:07)
[2021-02-03] MEDS: ALBUTEROL/IPRATROPIUM 2.5MG/0.5MG, 3 ML NEB SCH ×3 (09:16→16:00)
[2021-02-03 13:05] VITALS: BP 132/78
[2021-02-03 20:15] VITALS: BP 119/65
[2021-02-03] MEDS: methylPREDNISolone SOD SUCC 40 MG/ML IVPush SCH (21:05)
[2021-02-04] MEDS: ALBUTEROL/IPRATROPIUM 2.5MG/0.5MG, 3 ML NEB SCH ×5 (00:25→19:49)
[2021-02-04 00:51] VITALS: BP 137/83
[2021-02-04] MEDS: HEPARIN 5,000 UNITS/ML, 1ML SQ SCH ×3 (01:38→16:15)
[2021-02-04] MEDS: PANTOPRAZOLE 40MG TABLET PO SCH (05:26)
[2021-02-04 05:51] LABS: BASOPHILS % (AUTO) 0 % (0-1); EOSINOPHILS % (AUTO) 0 % (1-7); LYMPHOCYTES % (AUTO) 5 % (22-44); MEAN CORPUSCULAR HEMOGLOBIN 32.6 pg (27.5-34.5); MEAN CORPUSCULAR HGB CONC 34.1 g/dL (33.2-36.2); MEAN PLATELET VOLUME 10.4 fL (7.4-10.4); MONOCYTES % (AUTO) 5 % (2-9); NEUTROPHILS % (AUTO) 91 % (42-75); PLATELET COUNT 98 x10^3/uL (130-400); RED BLOOD COUNT 3.61 x10^6/uL (4.38-5.82); RED CELL DISTRIBUTION WIDTH 17.9 % (9.4-14.8)
[2021-02-04 06:03] LABS: ALANINE AMINOTRANSFERASE 19 U/L (12-78); ALBUMIN 2.5 g/dL (3.4-5.0); ANION GAP 10 mmol/L (5-15); CALCIUM 7.9 mg/dL (8.5-10.1); CHLORIDE 102 mmol/L (98-107); CREATININE 3.17 mg/dL (0.7-1.3)
[2021-02-04 06:04] LABS: ALKALINE PHOSPHATASE 101 U/L (45-117); BILIRUBIN,TOTAL 0.6 mg/dL (0.2-1.0); TOTAL PROTEIN 5.8 g/dL (6.4-8.2)
[2021-02-04 06:08] LABS: MD NO
[2021-02-04 07:51] VITALS: BP 146/88
[2021-02-04] MEDS: methylPREDNISolone SOD SUCC 40 MG/ML IVPush SCH ×3 (08:00→20:47)
[2021-02-04] MEDS: CARVEDILOL 6.25 MG TABLET PO SCH ×2 (08:00→20:46)
[2021-02-04] MEDS: FOLIC ACID 1 MG TABLET PO SCH (08:01)
[2021-02-04] MEDS: LOSARTAN 50MG TABLET PO SCH (08:01)
[2021-02-04] MEDS: ISOSORBIDE MONONITRATE ER 30 MG TABLET PO SCH (08:01)
[2021-02-04] MEDS: THIAMINE 100MG TABLET PO SCH ×2 (08:01→20:46)
[2021-02-04] MEDS: MULTIVITAMIN 1 TABLET PO SCH (08:02)
[2021-02-04] MEDS: SODIUM CHLORIDE FLUSH 10ML SYR IVF SCH ×2 (08:02→20:48)
[2021-02-04] MEDS: INSULIN LISPRO 100 UNITS/ML, PEN SQ-INSULIN SCH ×4 (08:03→20:47)
[2021-02-04] MEDS: LEVOFLOXACIN/PMX 500MG/100ML 100 ML IV SCH (10:00)
[2021-02-04 14:35] VITALS: BP 149/77
[2021-02-04] MEDS: NS + 20MEQ KCL 1,000 ML IV SCH (17:53)
[2021-02-04] MEDS ORDERED: MAGNESIUM SULFATE PMX 2GM/50ML 50 ML IV ONE (18:00)
[2021-02-04 20:41] VITALS: BP 138/82
[2021-02-05] MEDS: HEPARIN 5,000 UNITS/ML, 1ML SQ SCH ×3 (01:30→08:55)
[2021-02-05 02:46] VITALS: BP 152/92
[2021-02-05] MEDS: NS + 20MEQ KCL 1,000 ML IV SCH (04:13)
[2021-02-05] MEDS: PANTOPRAZOLE 40MG TABLET PO SCH (05:41)
[2021-02-05] MEDS: ALBUTEROL/IPRATROPIUM 2.5MG/0.5MG, 3 ML NEB SCH ×2 (06:00→14:40)
[2021-02-05 06:03] LABS: BASOPHILS % (AUTO) 0 % (0-1); EOSINOPHILS % (AUTO) 0 % (1-7); LYMPHOCYTES % (AUTO) 5 % (22-44); MEAN CORPUSCULAR HEMOGLOBIN 32.6 pg (27.5-34.5); MEAN CORPUSCULAR HGB CONC 33.5 g/dL (33.2-36.2); MONOCYTES % (AUTO) 5 % (2-9); NEUTROPHILS % (AUTO) 90 % (42-75); PLATELET COUNT 97 x10^3/uL (130-400); RED CELL DISTRIBUTION WIDTH 18.2 % (9.4-14.8)
[2021-02-05 06:10] LABS: MD NO
[2021-02-05 06:11] LABS: ANION GAP 8 mmol/L (5-15); CALCIUM 7.7 mg/dL (8.5-10.1); CHLORIDE 104 mmol/L (98-107)
[2021-02-05 06:12] LABS: CREATININE 2.66 mg/dL (0.7-1.3)
[2021-02-05] MEDS: INSULIN LISPRO 100 UNITS/ML, PEN SQ-INSULIN SCH ×2 (07:51→11:09)
[2021-02-05 08:29] VITALS: BP 184/90
[2021-02-05] MEDS: methylPREDNISolone SOD SUCC 40 MG/ML IVPush SCH (08:49)
[2021-02-05] MEDS: MULTIVITAMIN 1 TABLET PO SCH (08:49)
[2021-02-05] MEDS: ISOSORBIDE MONONITRATE ER 30 MG TABLET PO SCH (08:49)
[2021-02-05] MEDS: CARVEDILOL 6.25 MG TABLET PO SCH (08:49)
[2021-02-05] MEDS: THIAMINE 100MG TABLET PO SCH (08:49)
[2021-02-05] MEDS: LOSARTAN 50MG TABLET PO SCH (08:50)
[2021-02-05] MEDS: FOLIC ACID 1 MG TABLET PO SCH (08:50)
[2021-02-05] MEDS: SODIUM CHLORIDE FLUSH 10ML SYR IVF SCH (08:53)
[2021-02-05 10:52] VITALS: BP 175/100
[2021-02-05] MEDS ORDERED: ALBU90AE2 INH (11:49)
[2021-02-05] MEDS ORDERED: PRED20TA PO (11:49)
[2021-02-05] MEDS ORDERED: LEVO500T8 PO (12:07)
[2021-02-05] MEDS ORDERED: POTASSIUM CHLORIDE 20 MEQ TAB.ER.PRT PO ONE (12:30)
[2021-02-05 13:43] VITALS: BP 194/113
[2021-02-05 14:00] VITALS: BP 198/110
[2021-02-05 16:00] VITALS: BP 170/85
== END 2021-02-05 16:55 | disposition home or self-care (01) | DRG 133 ==
LOC: ED 06:16 → SUATTDRO 07:45 → EDIP 07:54 → CCU 11:56 → 4EST 18:31 → DCLOUNGE 02-05 16:19
PROVIDERS: ADMIT Internal Medicine; ATTEND Internal Medicine
PROC: 02HV33Z Insertion of Infusion Device into Superior Vena Cava, Percutaneous Approach (ICD-10-PCS; principal; 2021-02-02)
PROC: B548ZZA Ultrasonography of Superior Vena Cava, Guidance (ICD-10-PCS; 2021-02-02)
PROC: 5A09357 Assistance with Respiratory Ventilation, Less than 24 Consecutive Hours, Continuous Positive Airway Pressure (ICD-10-PCS; 2021-02-02)
DX: J96.01 Acute respiratory failure with hypoxia (principal); I50.21 Acute systolic (congestive) heart failure; E11.22 Type 2 diabetes mellitus with diabetic chronic kidney disease; I27.20 Pulmonary hypertension, unspecified; N18.4 Chronic kidney disease, stage 4 (severe); N17.9 Acute kidney failure, unspecified; I13.0 Hypertensive heart and chronic kidney disease with heart failure and stage 1 through stage 4 chronic kidney disease, or unspecified chronic kidney disease; R65.10 Systemic inflammatory response syndrome (SIRS) of non-infectious origin without acute organ dysfunction; J44.1 Chronic obstructive pulmonary disease with (acute) exacerbation; E86.0 Dehydration; D63.8 Anemia in other chronic diseases classified elsewhere; F17.210 Nicotine dependence, cigarettes, uncomplicated; I25.5 Ischemic cardiomyopathy; I45.10 Unspecified right bundle-branch block; J98.11 Atelectasis; K74.60 Unspecified cirrhosis of liver; R79.89 Other specified abnormal findings of blood chemistry; Z79.899 Other long term (current) drug therapy; Z79.891 Long term (current) use of opiate analgesic; Z79.01 Long term (current) use of anticoagulants; Z79.82 Long term (current) use of aspirin; Z87.01 Personal history of pneumonia (recurrent); Z87.81 Personal history of (healed) traumatic fracture; Z88.8 Allergy status to other drugs, medicaments and biological substances; Z88.5 Allergy status to narcotic agent
CPT/HCPCS: 36415; 36573; 36600; 71045; 80048; 80053; 82803; 82962; 83605; 83735; 83880; 84100; 84145; 84484; 85025; 87040; 87081; 93005; 93306; 94640; 94660; 96365; 96375; G0378; J1644; J1940; J1956; J3411; J3480; C1751; C9113; J0360; J1815; J2270; J2920; J2930; J3475

== ENCOUNTER 2021-03-13 00:40 | Inpatient (IN) | payer MEDICAID ==
[~2021-03-13] VITALS: Ht 172.7 cm; Wt 63.7 kg
[~2021-03-13 00:40] MED LIST changes: +ALBU90AE2 INH; +LEVO500T8 PO
--- NOTE | 2021-03-13 00:50 | NUR ---
PT BIBA FROM HOME TO THE ED THIS EVENING DUE TO RESPIRATORY DISTRESS. PT WAS FOUND AT HOME, EXTREMELY DIAPHORETIC AND COOL, RA SATS WELL BELOW 90S, RAPID RATE, EMS PLACED PT ON BIPAP ENROUTE, 3 NEBS ADMINISTERED ENROUTE. UPON ARRIVAL PT SWITCHED TO RT BIPAP, TRIPODING ON , IV ACCESS OBTAINED, MEDICATIONS ADMINISTERED PER NOV. PT ABLE TO STATE THAT HE HAS A PAST MEDICAL HX OF COPD, HTN, CHF. REPORTS INCREASED LEG SWELLING OVER PAST WEEK. PT ALSO REPORTS THAT HE DOES NOT ALWAYS TAKE HIS MEDICATIONS. PT IS A DAILY DRINKER AND SMOKER. PLACED ON SPO2/BP/ECG MONITORING ON ARRIVAL. WCTM.
[2021-03-13] MEDS ORDERED: MAGNESIUM SULFATE PMX 2GM/50ML 50 ML IVPB ONE (01:00)
[2021-03-13] MEDS ORDERED: methylPREDNISolone SOD SUCC 125 MG/2 ML IVPB ONE (01:00)
[2021-03-13] MEDS ORDERED: ALBUTEROL/IPRATROPIUM 2.5MG/0.5MG, 3 ML NPPB SCH ×2 (01:00→03:00)
--- NOTE | 2021-03-13 01:15 | NUR ---
PT MEDICATED PER MAR. APPEARS MORE COMFORTABLE AT THIS TIME. BLOOD PRESSURE ELEVATED, ERP AWARE, WCTM.
[2021-03-13 01:27] LABS: BASOPHILS % (AUTO) 1 % (0-1); EOSINOPHILS % (AUTO) 2 % (1-7); LYMPHOCYTES % (AUTO) 18 % (22-44); MEAN CORPUSCULAR HEMOGLOBIN 32.7 pg (27.5-34.5); MEAN CORPUSCULAR HGB CONC 33.4 g/dL (33.2-36.2); MEAN PLATELET VOLUME 9.2 fL (7.4-10.4); MONOCYTES % (AUTO) 9 % (2-9); NEUTROPHILS % (AUTO) 70 % (42-75); PLATELET COUNT 137 x10^3/uL (130-400); RED BLOOD COUNT 3.98 x10^6/uL (4.38-5.82); RED CELL DISTRIBUTION WIDTH 19.6 % (9.4-14.8)
[2021-03-13] MEDS ORDERED: NITROGLYCERIN 0.4 MG BOTTLE (25 TABS) SL ONE (01:30)
[2021-03-13] MEDS ORDERED: NITROGLYCERIN SINGLE TAB 0.4 MG SL ONE (01:31)
[2021-03-13 01:32] LABS: ALANINE AMINOTRANSFERASE 18 U/L (12-78); ALBUMIN 3.2 g/dL (3.4-5.0); ANION GAP 8 mmol/L (5-15); CALCIUM 8.6 mg/dL (8.5-10.1); CHLORIDE 110 mmol/L (98-107); CREATININE 2.32 mg/dL (0.7-1.3)
[2021-03-13 01:36] LABS: ALKALINE PHOSPHATASE 142 U/L (45-117); BILIRUBIN,TOTAL 1.1 mg/dL (0.2-1.0); TOTAL PROTEIN 7.2 g/dL (6.4-8.2)
--- NOTE | 2021-03-13 01:38 | NUR ---
BEDSIDE REPORT TO KATY RN. PT CARE TRANSFERRED AT THIS TIME.
[2021-03-13 01:45] LABS: TROPONIN I 0.121 ng/mL (0.000-0.045)
--- NOTE | 2021-03-13 02:04 | NUR ---
PER RT AFTER PT GIVEN LASIX PT TO BE SWITCHED TO HIGH FLOW NC
[2021-03-13] MEDS ORDERED: ALBUTEROL SULFATE 2.5MG/0.5ML ONE (02:07)
[2021-03-13] MEDS ORDERED: ALBUTEROL/IPRATROPIUM 2.5MG/0.5MG, 3 ML ONE (02:07)
[2021-03-13] MEDS ORDERED: FUROSEMIDE 40 MG/4 ML ONE (02:14)
[2021-03-13] MEDS ORDERED: LABETALOL 5MG/ML, 20ML ONE ×2 (02:28→02:48)
[2021-03-13] MEDS ORDERED: FUROSEMIDE 40 MG/4 ML IV ONE (02:30)
[2021-03-13] MEDS ORDERED: LABETALOL 5MG/ML, 20ML IVPush ONE ×2 (02:30→03:00)
--- NOTE | 2021-03-13 02:39 | NUR ---
PT AWAKE AND ALERT, CALM AND LESS RESPIRATORY DISTRESS. PT RECEIVED HIS LASIX MED IVP, AND LABETOLOL IVP PER MD ORDER, SEE EMAR. PT PROVIDED BEDSIDE URINAL.
--- NOTE | 2021-03-13 02:57 | NUR ---
PT MEDICATED WITH LABETOLOL AGAIN, PER MD ORDER, SEE EMAR. PT REMAINS ON BIPAP. PT ALSO VOIDED APPROXIMATELY 120ML OF CLEAR, YELLOW, URINE.
--- NOTE | 2021-03-13 03:05 | NUR ---
RT TO BEDSIDE TO TRIAL PT OFF OF BIPAP ONTO HI HOMER NC. PT TOLERATING AND IS HAPPY TO HAVE THE BIPAP MASK OFF. PT OFFERED AND GIVEN SOME ICE CHIPS, PER MD ORDER. TOLERATED WELL, AIRWAY INTACT, AND GOOD AERATION AND OXYGENATION. PT APPEARS TO BE IN A LOT LESS RESPIRATORY DISTRESS THAN WHEN HE CAME IN AND IS ABLE TO HAVE FULL SENTENCE CONVERSATION WITHOUT LOSING HIS BREATH.
--- NOTE | 2021-03-13 03:09 | NUR ---
PT PLACED ON 8LPM HI HOMER NC PER RT AND TOLERATING AT THIS TIME.
--- NOTE | 2021-03-13 03:19 | NUR ---
PT CALLED RN TO BEDSIDE AND SAYS HE'S NOT DOING WELL ON THE NASAL CANNULA, PT IS SITTING UP AND TRIPODING IN HIS BED WHILE ON THE NC. RT CALLED TO BEDSIDE TO PUT PT BACK ON BIPAP. SETTINGS ARE 14/6 AT 30%. PT IMMEDIATELY STATES HE FEELS BETTER.
[2021-03-13] MEDS ORDERED: LABETALOL 5MG/ML, 20ML IVPush PRN (04:30)
[2021-03-13] MEDS ORDERED: ONDANSETRON 2MG/ML, 2ML IVPush PRN (04:30)
[2021-03-13] MEDS ORDERED: NITROGLYCERIN 0.4 MG BOTTLE (25 TABS) SL PRN (04:30)
[2021-03-13] MEDS ORDERED: ENOXAPARIN 40 MG/0.4 ML SQ SCH (04:30)
[2021-03-13] MEDS ORDERED: MELATONIN 5 MG TABLET PO PRN (04:30)
--- NOTE | 2021-03-13 04:36 | NUR ---
PT IS MORE COMFORTABLE ON THE BIPAP AND IS ABLE TO SLEEP. PT RESTING AT THIS TIME, REMAINS HYPERTENSIVE AND MD IS AWARE, NO NEW ORDERS RECEIVED SO FAR.
--- NOTE | 2021-03-13 05:08 | NUR ---
REPORT AND CARE CALLED TO CLAUDETTE RN, AND PT TRANSPORTED TO CCU BED 544 WITHOUT INCIDENT. RT CALLED TO ROOM FOR THE BIPAP TRANSPORT TO FLOOR. PT ON OXY MASK FOR THE TRANSFER AND PLACED BACK ON BIPAP AT THE CCU ROOM. PT TOLERATED WELL, AND TOOK SOME ICE CHIPS IN BETWEEN THE MASK BEING PUT ON THE PT. PT CARE TRANSFERRED TO CCU RN.
[2021-03-13 05:16] LABS: TROPONIN I 0.147 ng/mL (0.000-0.045)
[2021-03-13 05:19] VITALS: BP 173/117
[2021-03-13] MEDS ORDERED: ENOXAPARIN 30 MG/0.3 ML ONE (05:30)
[2021-03-13] MEDS ORDERED: ENOXAPARIN 30 MG/0.3 ML SQ SCH (06:00)
[2021-03-13] MEDS ORDERED: hydrALAzine 20 MG/ML, 1ML IV PRN (06:30)
[2021-03-13] MEDS ORDERED: INSULIN LISPRO 100 UNITS/ML, PEN SQ-INSULIN SCH (07:00)
[2021-03-13] MEDS: CARVEDILOL 6.25 MG TABLET PO SCH ×2 (07:51→20:44)
[2021-03-13] MEDS: ASPIRIN 81 MG TABLET EC PO SCH (07:51)
[2021-03-13] MEDS: ISOSORBIDE MONONITRATE ER 30 MG TABLET PO SCH (07:51)
[2021-03-13] MEDS: INSULIN LISPRO 100 UNITS/ML, PEN SQ-INSULIN SCH ×4 (07:52→20:41)
[2021-03-13] MEDS ORDERED: FUROSEMIDE 40 MG TABLET PO SCH (08:00)
[2021-03-13] MEDS: ALBUTEROL/IPRATROPIUM 2.5MG/0.5MG, 3 ML NPPB PRN (12:00)
[2021-03-13] MEDS ORDERED: NICOTINE 21 MG/24 HR PATCH.TD24 ONE (15:44)
[2021-03-13] MEDS: FUROSEMIDE 40 MG/4 ML IV SCH ×3 (17:02→19:33)
[2021-03-13] MEDS: NICOTINE 21 MG/24 HR PATCH.TD24 TD SCH (17:03)
[2021-03-13] MEDS: ATORVASTATIN 80 MG TABLET PO SCH (20:44)
[2021-03-13] MEDS ORDERED: CALCIUM CARBONATE 500 MG TAB.CHEW ONE (21:04)
[2021-03-13] MEDS: CALCIUM CARBONATE 500 MG TAB.CHEW PO PRN (21:08)
[2021-03-14] MEDS: ALBUTEROL/IPRATROPIUM 2.5MG/0.5MG, 3 ML NPPB PRN ×2 (03:31→18:38)
[2021-03-14] MEDS: ENOXAPARIN 40 MG/0.4 ML SQ SCH (05:09)
[2021-03-14 05:50] LABS: ANION GAP 7 mmol/L (5-15); CALCIUM 8.1 mg/dL (8.5-10.1); CHLORIDE 100 mmol/L (98-107)
[2021-03-14] MEDS: INSULIN LISPRO 100 UNITS/ML, PEN SQ-INSULIN SCH ×4 (07:44→20:54)
[2021-03-14] MEDS: INSULIN GLARGINE 100 UNITS/ML, PEN SQ-INSULIN SCH ×2 (07:44→20:59)
[2021-03-14] MEDS: FUROSEMIDE 40 MG/4 ML IV SCH ×2 (07:45→16:15)
[2021-03-14] MEDS: NICOTINE 21 MG/24 HR PATCH.TD24 TD SCH (07:45)
[2021-03-14] MEDS: ASPIRIN 81 MG TABLET EC PO SCH (07:46)
[2021-03-14] MEDS: ISOSORBIDE MONONITRATE ER 30 MG TABLET PO SCH (07:46)
[2021-03-14] MEDS: CARVEDILOL 6.25 MG TABLET PO SCH ×2 (07:46→20:58)
[2021-03-14] MEDS: CALCIUM CARBONATE 500 MG TAB.CHEW PO PRN (16:20)
[2021-03-14 19:51] VITALS: BP 157/114
[2021-03-14] MEDS: ATORVASTATIN 80 MG TABLET PO SCH (20:58)
[2021-03-15 02:48] VITALS: BP 150/107
[2021-03-15] MEDS: ENOXAPARIN 40 MG/0.4 ML SQ SCH (06:14)
[2021-03-15] MEDS: INSULIN LISPRO 100 UNITS/ML, PEN SQ-INSULIN SCH ×4 (07:00→20:16)
[2021-03-15 07:50] VITALS: BP 168/100
[2021-03-15 08:07] LABS: ANION GAP 5 mmol/L (5-15); CALCIUM 8.5 mg/dL (8.5-10.1); CHLORIDE 98 mmol/L (98-107); CREATININE 2.18 mg/dL (0.7-1.3)
[2021-03-15] MEDS: NICOTINE 21 MG/24 HR PATCH.TD24 TD SCH (10:04)
[2021-03-15] MEDS: INSULIN GLARGINE 100 UNITS/ML, PEN SQ-INSULIN SCH ×2 (10:07→20:15)
[2021-03-15] MEDS: ISOSORBIDE MONONITRATE ER 30 MG TABLET PO SCH (10:08)
[2021-03-15] MEDS: ASPIRIN 81 MG TABLET EC PO SCH (10:08)
[2021-03-15] MEDS: CARVEDILOL 6.25 MG TABLET PO SCH ×2 (10:08→20:05)
[2021-03-15 12:59] VITALS: BP 170/101
[2021-03-15] MEDS: FUROSEMIDE 40 MG TABLET PO SCH (17:45)
[2021-03-15] MEDS: POTASSIUM CHLORIDE 20 MEQ TAB.ER.PRT PO SCH (17:45)
[2021-03-15 18:59] VITALS: BP 165/98
[2021-03-15 20:03] VITALS: BP 160/86
[2021-03-15] MEDS: ATORVASTATIN 80 MG TABLET PO SCH (20:05)
[2021-03-15] MEDS: ALBUTEROL/IPRATROPIUM 2.5MG/0.5MG, 3 ML NPPB PRN (20:42)
[2021-03-16 01:27] VITALS: BP 157/94
[2021-03-16] MEDS ORDERED: ENOXAPARIN 40 MG/0.4 ML SQ SCH (06:00)
[2021-03-16] MEDS: INSULIN LISPRO 100 UNITS/ML, PEN SQ-INSULIN SCH ×2 (06:43→10:56)
[2021-03-16 06:48] VITALS: BP 169/105
[2021-03-16] MEDS: ISOSORBIDE MONONITRATE ER 30 MG TABLET PO SCH (07:57)
[2021-03-16] MEDS: FUROSEMIDE 40 MG TABLET PO SCH (07:57)
[2021-03-16] MEDS: ASPIRIN 81 MG TABLET EC PO SCH (07:57)
[2021-03-16] MEDS: POTASSIUM CHLORIDE 20 MEQ TAB.ER.PRT PO SCH (07:57)
[2021-03-16] MEDS: CARVEDILOL 6.25 MG TABLET PO SCH (07:58)
[2021-03-16] MEDS: INSULIN GLARGINE 100 UNITS/ML, PEN SQ-INSULIN SCH (07:59)
[2021-03-16] MEDS: NICOTINE 21 MG/24 HR PATCH.TD24 TD SCH (07:59)
[2021-03-16 09:19] LABS: BASOPHILS % (AUTO) 1 % (0-1); EOSINOPHILS % (AUTO) 2 % (1-7); LYMPHOCYTES % (AUTO) 16 % (22-44); MEAN CORPUSCULAR HEMOGLOBIN 32.8 pg (27.5-34.5); MEAN CORPUSCULAR HGB CONC 33.6 g/dL (33.2-36.2); MEAN PLATELET VOLUME 9.8 fL (7.4-10.4); MONOCYTES % (AUTO) 12 % (2-9); NEUTROPHILS % (AUTO) 69 % (42-75); PLATELET COUNT 165 x10^3/uL (130-400); RED BLOOD COUNT 4.16 x10^6/uL (4.38-5.82); RED CELL DISTRIBUTION WIDTH 19.7 % (9.4-14.8)
[2021-03-16 09:30] LABS: ANION GAP 7 mmol/L (5-15); CALCIUM 8.7 mg/dL (8.5-10.1); CHLORIDE 99 mmol/L (98-107); CREATININE 2.08 mg/dL (0.7-1.3)
[2021-03-16] MEDS ORDERED: GLIP5TAB10 PO (10:04)
[2021-03-16] MEDS ORDERED: FURO40TA6 PO (10:04)
== END 2021-03-16 11:55 | disposition home or self-care (01) | DRG 469 ==
LOC: ED 05:03 → EDIP 05:05 → CCU 05:09 → 5SO 03-15 08:08 → DCLOUNGE 03-16 11:45
PROVIDERS: ADMIT Internal Medicine; ATTEND Internal Medicine
PROC: 5A09457 Assistance with Respiratory Ventilation, 24-96 Consecutive Hours, Continuous Positive Airway Pressure (ICD-10-PCS; principal; 2021-03-13)
DX: N17.0 Acute kidney failure with tubular necrosis (principal); I21.A1 Myocardial infarction type 2; J96.21 Acute and chronic respiratory failure with hypoxia; I13.2 Hypertensive heart and chronic kidney disease with heart failure and with stage 5 chronic kidney disease, or end stage renal disease; I50.43 Acute on chronic combined systolic (congestive) and diastolic (congestive) heart failure; E11.22 Type 2 diabetes mellitus with diabetic chronic kidney disease; I27.20 Pulmonary hypertension, unspecified; N18.6 End stage renal disease; F10.239 Alcohol dependence with withdrawal, unspecified; F17.210 Nicotine dependence, cigarettes, uncomplicated; J44.1 Chronic obstructive pulmonary disease with (acute) exacerbation; I16.1 Hypertensive emergency; R77.8 Other specified abnormalities of plasma proteins; Z91.14 Patient's other noncompliance with medication regimen; Z91.19 Patient's noncompliance with other medical treatment and regimen; Z79.899 Other long term (current) drug therapy; Z79.891 Long term (current) use of opiate analgesic; Z79.01 Long term (current) use of anticoagulants; Z84.1 Family history of disorders of kidney and ureter; Z82.49 Family history of ischemic heart disease and other diseases of the circulatory system
CPT/HCPCS: 36415; 36600; 71045; 80048; 80053; 82803; 82962; 83036; 83880; 84484; 85025; 87040; 87081; 93005; 94640; 94660; 96374; G0378; J1650; J1940; J1815; J2930; J3475

== ENCOUNTER 2021-03-26 05:08 | Inpatient (IN) | payer MEDICAID ==
[~2021-03-26] VITALS: Ht 175.3 cm; Wt 65.6 kg
[~2021-03-26 05:08] MED LIST changes: +GLIP5TAB10 PO
[2021-03-26] MEDS ORDERED: ALBUTEROL/IPRATROPIUM 2.5MG/0.5MG, 3 ML ONE (05:41)
[2021-03-26] MEDS ORDERED: methylPREDNISolone SOD SUCC 125 MG/2 ML ONE (05:41)
[2021-03-26] MEDS ORDERED: CARVEDILOL 6.25 MG TABLET PO ONE (06:00)
[2021-03-26] MEDS ORDERED: ALBUTEROL/IPRATROPIUM 2.5MG/0.5MG, 3 ML NPPB ONE (06:00)
[2021-03-26] MEDS ORDERED: methylPREDNISolone SOD SUCC 125 MG/2 ML IV ONE (06:00)
[2021-03-26] MEDS ORDERED: SODIUM CHLORIDE FLUSH 10ML SYR IVF ONE (06:00)
[2021-03-26] MEDS ORDERED: CARVEDILOL 6.25 MG TABLET ONE (06:05)
[2021-03-26 06:22] LABS: BASOPHILS % (AUTO) 1 % (0-1); EOSINOPHILS % (AUTO) 2 % (1-7); LYMPHOCYTES % (AUTO) 16 % (22-44); MEAN CORPUSCULAR HGB CONC 33.7 g/dL (33.2-36.2); MEAN PLATELET VOLUME 9.3 fL (7.4-10.4); MONOCYTES % (AUTO) 6 % (2-9); NEUTROPHILS % (AUTO) 75 % (42-75); PLATELET COUNT 162 x10^3/uL (130-400); RED BLOOD COUNT 3.87 x10^6/uL (4.38-5.82); RED CELL DISTRIBUTION WIDTH 18.4 % (9.4-14.8)
[2021-03-26 06:27] LABS: ALANINE AMINOTRANSFERASE 18 U/L (12-78); ALBUMIN 3.3 g/dL (3.4-5.0); ANION GAP 6 mmol/L (5-15); CALCIUM 9.4 mg/dL (8.5-10.1); CHLORIDE 105 mmol/L (98-107); CREATININE 2.42 mg/dL (0.7-1.3)
[2021-03-26 06:32] LABS: ALKALINE PHOSPHATASE 137 U/L (45-117); TOTAL PROTEIN 7.3 g/dL (6.4-8.2)
--- NOTE | 2021-03-26 07:00 | NUR ---
REPORT GIVEN TO SERA FAYE
--- NOTE | 2021-03-26 07:02 | NUR ---
URINAL PROVIDED TO PATIENT.
[2021-03-26] MEDS ORDERED: SODIUM CHLORIDE FLUSH 10ML SYR IVF PRN (07:30)
--- NOTE | 2021-03-26 07:51 | NUR ---
REPORT GIVEN TO SERA GOLDEN FOR TRANSFER OF PATIENT CARE.
--- NOTE | 2021-03-26 08:01 | NUR ---
PATIENT'S BP HIGH, NADN, PATIENT'S O2 SATURATION IS 95-96% RA, HR 80'S. ERMD NOTIFIED ABOUT BP, NO ORDERS RECEIVED AT THIS TIME. PATIENT BEING ADMITTED.
--- NOTE | 2021-03-26 08:29 | NUR ---
PATIENT TRANSFERRED IN STABLE CONDITION TO CARDIAC TELEMETRY [facility]IA [facility] WITH PTA. ALL PATIENT BELONGINGS TAKEN TO FLOOR WITH PATIENT.
[2021-03-26 08:32] VITALS: BP 184/123
[2021-03-26] MEDS ORDERED: BISACODYL 10 MG SUPP PR PRN (09:30)
[2021-03-26] MEDS ORDERED: POLYETHYLENE GLYCOL 17 GM PACKET PO PRN (09:30)
[2021-03-26] MEDS ORDERED: ACETAMINOPHEN 325 MG TABLET PO PRN (09:30)
[2021-03-26] MEDS ORDERED: LABETALOL 5MG/ML, 20ML IVPush PRN (09:30)
[2021-03-26] MEDS: FOLIC ACID 1 MG TABLET PO SCH (09:58)
[2021-03-26] MEDS: THIAMINE 100MG TABLET PO SCH ×2 (09:58→20:58)
[2021-03-26] MEDS: ISOSORBIDE MONONITRATE ER 30 MG TABLET PO SCH (09:59)
[2021-03-26] MEDS: HEPARIN 5,000 UNITS/ML, 1ML SQ SCH ×2 (09:59→20:58)
[2021-03-26] MEDS: LOSARTAN 50MG TABLET PO SCH (09:59)
[2021-03-26] MEDS: ASPIRIN 81 MG TABLET EC PO SCH (09:59)
[2021-03-26] MEDS: methylPREDNISolone SOD SUCC 125 MG/2 ML IVPush SCH ×2 (10:00→16:51)
[2021-03-26 11:31] LABS: TROPONIN I 0.385 ng/mL (0.000-0.045)
[2021-03-26 13:16] VITALS: BP 164/87
[2021-03-26 16:14] LABS: TROPONIN I 0.231 ng/mL (0.000-0.045)
[2021-03-26 16:50] VITALS: BP 146/79
[2021-03-26] MEDS: FUROSEMIDE 40 MG/4 ML IV SCH (16:51)
[2021-03-26 20:00] VITALS: BP 144/79
[2021-03-26] MEDS: ATORVASTATIN 40 MG TABLET PO SCH (20:58)
[2021-03-26] MEDS ORDERED: CALCIUM CARBONATE 500 MG TAB.CHEW PO PRN (21:00)
[2021-03-27] MEDS: methylPREDNISolone SOD SUCC 125 MG/2 ML IVPush SCH ×3 (01:10→21:56)
[2021-03-27 01:17] VITALS: BP 135/74
[2021-03-27 05:14] LABS: BASOPHILS % (AUTO) 0 % (0-1); EOSINOPHILS % (AUTO) 0 % (1-7); LYMPHOCYTES % (AUTO) 6 % (22-44); MEAN CORPUSCULAR HEMOGLOBIN 32.9 pg (27.5-34.5); MEAN CORPUSCULAR HGB CONC 34.2 g/dL (33.2-36.2); MEAN PLATELET VOLUME 9.7 fL (7.4-10.4); MONOCYTES % (AUTO) 2 % (2-9); NEUTROPHILS % (AUTO) 92 % (42-75); PLATELET COUNT 128 x10^3/uL (130-400); RED BLOOD COUNT 3.49 x10^6/uL (4.38-5.82); RED CELL DISTRIBUTION WIDTH 18.6 % (9.4-14.8)
[2021-03-27 05:27] LABS: CHLORIDE 98 mmol/L (98-107)
[2021-03-27 05:42] LABS: ANION GAP 8 mmol/L (5-15); CALCIUM 8.6 mg/dL (8.5-10.1)
[2021-03-27 07:03] VITALS: BP 164/101
[2021-03-27] MEDS: FUROSEMIDE 40 MG/4 ML IV SCH ×2 (08:18→16:43)
[2021-03-27] MEDS: THIAMINE 100MG TABLET PO SCH ×2 (08:18→21:56)
[2021-03-27] MEDS: ASPIRIN 81 MG TABLET EC PO SCH (08:18)
[2021-03-27] MEDS: LOSARTAN 50MG TABLET PO SCH (08:18)
[2021-03-27] MEDS: POTASSIUM CHLORIDE 20 MEQ PACKET PO SCH (08:18)
[2021-03-27] MEDS: FOLIC ACID 1 MG TABLET PO SCH (08:18)
[2021-03-27] MEDS: SENNA/DOCUSATE TABLET PO SCH (09:00)
[2021-03-27] MEDS: INSULIN LISPRO 100 UNITS/ML, PEN SQ-INSULIN SCH ×4 (09:52→22:19)
[2021-03-27] MEDS: ISOSORBIDE MONONITRATE ER 30 MG TABLET PO SCH (09:52)
[2021-03-27] MEDS: HEPARIN 5,000 UNITS/ML, 1ML SQ SCH ×2 (09:53→21:56)
[2021-03-27 12:26] VITALS: BP 147/87
[2021-03-27 21:45] VITALS: BP 142/90
[2021-03-27] MEDS: ATORVASTATIN 40 MG TABLET PO SCH (21:56)
[2021-03-28 00:34] VITALS: BP 146/86
[2021-03-28 05:19] LABS: BASOPHILS % (AUTO) 0 % (0-1); EOSINOPHILS % (AUTO) 0 % (1-7); LYMPHOCYTES % (AUTO) 3 % (22-44); MEAN CORPUSCULAR HEMOGLOBIN 32.3 pg (27.5-34.5); MEAN CORPUSCULAR HGB CONC 33.4 g/dL (33.2-36.2); MEAN PLATELET VOLUME 10.2 fL (7.4-10.4); MONOCYTES % (AUTO) 2 % (2-9); NEUTROPHILS % (AUTO) 95 % (42-75); PLATELET COUNT 150 x10^3/uL (130-400); RED BLOOD COUNT 3.84 x10^6/uL (4.38-5.82); RED CELL DISTRIBUTION WIDTH 18.8 % (9.4-14.8)
[2021-03-28 05:22] LABS: ANION GAP 9 mmol/L (5-15); CALCIUM 8.2 mg/dL (8.5-10.1); CHLORIDE 98 mmol/L (98-107); CREATININE 2.52 mg/dL (0.7-1.3)
[2021-03-28] MEDS: FUROSEMIDE 40 MG/4 ML IV SCH (07:30)
[2021-03-28] MEDS ORDERED: POTASSIUM CHLORIDE 10 MEQ TABLET.ER ONE (07:32)
[2021-03-28] MEDS: POTASSIUM CHLORIDE 20 MEQ PACKET PO SCH (07:34)
[2021-03-28] MEDS: ISOSORBIDE MONONITRATE ER 30 MG TABLET PO SCH (07:35)
[2021-03-28] MEDS: THIAMINE 100MG TABLET PO SCH (07:35)
[2021-03-28] MEDS: FOLIC ACID 1 MG TABLET PO SCH (07:36)
[2021-03-28] MEDS: ASPIRIN 81 MG TABLET EC PO SCH (07:36)
[2021-03-28] MEDS: SENNA/DOCUSATE TABLET PO SCH (07:36)
[2021-03-28] MEDS: LOSARTAN 50MG TABLET PO SCH (07:36)
[2021-03-28] MEDS: methylPREDNISolone SOD SUCC 125 MG/2 ML IVPush SCH (07:38)
[2021-03-28] MEDS: INSULIN LISPRO 100 UNITS/ML, PEN SQ-INSULIN SCH (07:38)
[2021-03-28 07:48] VITALS: BP 159/78
[2021-03-28] MEDS ORDERED: ISOS30TA8 PO (08:32)
[2021-03-28] MEDS ORDERED: PRED20TA PO (08:32)
[2021-03-28] MEDS ORDERED: THIA100T67 PO (08:32)
[2021-03-28] MEDS: HEPARIN 5,000 UNITS/ML, 1ML SQ SCH (09:30)
== END 2021-03-28 10:10 | disposition home or self-care (01) | DRG 140 ==
LOC: ED 05:31 → EDIP 07:08 → 5SO 08:14 → DCLOUNGE 03-28 10:05
PROVIDERS: ADMIT Internal Medicine; ATTEND Internal Medicine
DX: J44.1 Chronic obstructive pulmonary disease with (acute) exacerbation (principal); I21.A1 Myocardial infarction type 2; I50.23 Acute on chronic systolic (congestive) heart failure; N17.9 Acute kidney failure, unspecified; I27.20 Pulmonary hypertension, unspecified; I16.0 Hypertensive urgency; I13.0 Hypertensive heart and chronic kidney disease with heart failure and stage 1 through stage 4 chronic kidney disease, or unspecified chronic kidney disease; I25.10 Atherosclerotic heart disease of native coronary artery without angina pectoris; E11.22 Type 2 diabetes mellitus with diabetic chronic kidney disease; N18.9 Chronic kidney disease, unspecified; K74.60 Unspecified cirrhosis of liver; I50.1 Left ventricular failure, unspecified; F17.210 Nicotine dependence, cigarettes, uncomplicated; D53.9 Nutritional anemia, unspecified; Z91.19 Patient's noncompliance with other medical treatment and regimen; Z99.81 Dependence on supplemental oxygen; Z95.1 Presence of aortocoronary bypass graft; Z95.5 Presence of coronary angioplasty implant and graft; Z84.1 Family history of disorders of kidney and ureter; Z82.49 Family history of ischemic heart disease and other diseases of the circulatory system; Z79.899 Other long term (current) drug therapy
CPT/HCPCS: 36415; 71045; 80048; 80053; 82962; 83036; 83880; 84443; 84484; 85025; 93005; G0378; J1644; J1940; J1815; J2930